=== PATIENT | male | born 1950 | race Caucasian/White ===

== ENCOUNTER 2017-01-13 10:25 | Inpatient (IN) | payer OTHER, MEDICARE ==
[~2017-01-13] VITALS: Ht 190.5 cm; Wt 149.7 kg
[~2017-01-13 10:25] MED LIST: ABILIFY15 M1 PO; AMBIEN10 MG PO; ASPIR 8181 MG PO; ATIVAN 0.5MG T0.5 MG PO; CEFTRIAXONE2 G2 IV; CEPHALEXIN500 M1 PO; CLONIDINE0.1 MG PO; DOLOPHINE10 MG PO; FERROUS SULFAT325 M3 PO; LISINOPRIL-HCT1 EAC1 PO; METHADONE HCL10 M1 PO; MULTIPLE VITAM1 EAC2 PO; MYCOSTATIN POWD15 GM TOP; ZESTORETIC 25 M1 TAB PO
--- NOTE | 2017-01-13 10:34 | NUR ---
PT SENT IN FROM DR. DANIEL OFFICE FOR ADMITSSION FOR CEULLULITIS OF HIS RIGHT LOWER EXT. PER RIGHT LEG DSG WAS CHANGED IN HIS OFFICE TODAY AND IS FINE.
--- NOTE | 2017-01-13 11:27 | NUR ---
APPRECIATE TRIAGE NOTE. PT TO ROOM 20 VIA WHEELCHAIR. PA ALICE TO BEDSIDE FOR EVAL.
--- NOTE | 2017-01-13 11:33 | ED SKIN/ALLERGY COMPLAINT ---
History of Present Illness General Chief Complaint: Lower Extremity Problems Stated Complaint: CELLULITIS? IN RIGHT LEG Source: patient Exam Limitations: no limitations Allergies Coded Allergies: Sulfa (Sulfonamide Antibiotics) (RASH 03/01/16) sulfamethoxazole (From ) (RASH 03/01/16) trimethoprim (From ) (RASH 03/01/16) Triage Note: PT SENT IN FROM DR. DANIEL OFFICE FOR ADMITSSION FOR CEULLULITIS OF HIS RIGHT LOWER EXT. PER RIGHT LEG DSG WAS CHANGED IN HIS OFFICE TODAY AND IS FINE. Triage Nurses Notes Reviewed? yes HPI: This patient is a 66-year-old male with a past medical history including hypertension and chronic venous insufficiency who presented to the emergency department for evaluation of possible cellulitis to his right lower extremity. The patient reported that he first noticed the symptoms on Friday. He was feeling very chilled and noticed redness to his right lower extremity. He reported that the redness has been extending up his leg. He reported mild pain to the area, but was unable to quantify or qualify the pain. The patient denied any fevers. He denied any chest pain, difficulty breathing, or abdominal pain. (ALICE VAIL,RINA) Vital Signs & Intake/Output Vital Signs & Intake/Output Vital Signs Date Time Temp Pulse Resp B/P B/P Pulse O2 O2 Flow FiO2 Mean Ox Delivery Rate 01/15 2207 98.5 67 22 120/70 98 01/15 1401 97.9 68 18 118/60 96 01/15 0656 97.7 60 18 126/66 99 Room Air ED Intake and Output 01/15 0000 01/14 1200 Intake Total 1220 120 Output Total 400 Balance 1220 -280 Intake, IV 600 Intake, Oral 620 120 Number 0 Bowel Movements Output, Urine 400 Reconcile Medications Alprazolam (Xanax) 0.5 MG TABLET 1 TAB PO 4 TIMES/DAY ANXIETY (Reported) Clindamycin HCl 300 MG CAPSULE 1 CAP PO 4 TIMES/DAY cellulits Ferrous Sulfate 325 MG (65 MG IRON) TABLET 1 TAB PO TID SUPPLEMENT (Reported) Lisinopril/Hydrochlorothiazide (Lisinopril-Hctz 20-25 MG Tab) 1 EACH TABLET 1 TAB PO DAILY HTN (Reported) Methadone Hydrochloride (Methadone HCl) 10 MG TABLET 3 TAB PO QAM [facility] (Reported) Methadone Hydrochloride (Methadone HCl) 10 MG TABLET 2 TAB PO QPM [facility] (Reported) Multivitamin (Multiple Vitamins) 1 EACH TABLET 1 TAB PO DAILY VITAMIN SUPPORT (Reported) Nystatin 1 BILLION UNIT POWDER.EA. 1 RONEL TOP TID FUNGAL RASH (Reported) Zolpidem Tartrate 10 MG TABLET 1 TAB PO QPM SLEEP HELP (Reported) (MACIEJ BURRELL,YUDELKA) Past History Travel History Traveled to [place] past 21 day No Medical History Any Pertinent Medical History? 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 No (RINA JENKINS PA-C) Review of Systems Review of Systems Constitutional: Reports: see HPI. EENTM: Reports: no symptoms. Respiratory: Reports: no symptoms. Cardiovascular: Reports: no symptoms. GI: Reports: no symptoms. Genitourinary: Reports: no symptoms. Musculoskeletal: Reports: no symptoms. Skin: Reports: see HPI. Neurological/Psychological: Reports: no symptoms. All Other Systems: Reviewed and Negative (RINA JENKINS PA-C) Physical Exam Physical Exam General Appearance: well developed/nourished, no apparent distress, alert, awake Comments: Well-developed well-nourished person in no acute distress HEENT: Normal EENT exam, head normocephalic, moist mucous membranes Neck: Supple, no lymphadenopathy Back: Antalgic gait Cardiovascular: Regular rate and rhythm with no murmurs, rubs, or gallops Respiratory: No respiratory distress. Breath sounds clear to auscultation bilaterally Right lower extremity: Stasis dermatitis. Erythema circumferentially to the lower extremity extending up to the thigh towards the hip. Mild tenderness to palpation. Mild amount of nonpitting edema to the lower extremity. Full range of motion of the hip, knee, and ankle. Dorsalis pedis and posterior tibialis pulses 2+ and strong Neuro: Alert oriented x3, cranial nerves II through XII grossly intact. Skin: No appreciable rash on exposed skin, skin is warm and dry. Psych: Mood and affect is normal (ALICE VAIL,RINA) Progress Differential Diagnosis: abscess/cellulitis, allergic reaction, contact dermatitis, drug reaction, erythema multiforme, meningitis/sepsis, urticaria (RINA JENKINS PA-C) Plan of Care: Current Medications Sig/Aminata Start time Last Medication Dose Stop Time Status Admin Alprazolam 0.5 MG FOUR TIMES A DAY PRN 01/15 0000 AC 01/15 (Xanax) 01/22 0959 2225 Clindamycin 600 MG IQ8 01/14 1600 AC 01/15 (Cleocin) 1620 Dextrose/Water 50 ML (D5W) Methadone HCl 30 MG QAM 01/14 1000 AC 01/15 (Dolophine) 0935 Heparin Sodium 5,000 UNIT Q8 01/13 2200 AC 01/15 (Porcine) 2222 Methadone HCl 20 MG QPM 01/13 2200 AC 01/15 (Dolophine) 2222 Senna/Docusate Sodium 1 TAB AT BEDTIME 01/13 2200 AC 01/13 (Senokot S) 2155 Zolpidem Tartrate 10 MG QPM / 2200 AC 01/15 (Ambien) 2223 Ferrous Sulfate 325 MG TID / 1600 AC 01/15 (Feosol) 2222 Acetaminophen 650 MG Q6P PRN / 1500 AC (Tylenol) Acetaminophen/ 1 TAB Q6P PRN / 1500 AC 05/ Hydrocodone Bitart 2045 (Vicodin) Oxycodone/ 2 TAB Q6P PRN /08 1500 AC / Acetaminophen 1405 (Percocet) Laboratory Tests 01/15/17 0550: Anion Gap 6, Estimated GFR > 60, BUN/Creatinine Ratio 36.4 H, Magnesium 1.8, CBC w Diff NO MAN DIFF REQ, RBC 3.10 L, MCV 83.1, MCH 27.2, RDW 16.0 H, MPV 9.7, Gran % 75.2, Lymphocytes % 15.9 L, Monocytes % 5.5, Eosinophils % 3.1, Basophils % 0.3, Absolute Granulocytes 3.7, Absolute Lymphocytes 0.8 L, Absolute Monocytes 0.3, Absolute Eosinophils 0.2, Absolute Basophils 0, PUBS MCHC 32.8 L Departure Departure Disposition: STILL A PATIENT Condition: Stable Clinical Impression Primary Impression: Cellulitis Qualifiers: Site of cellulitis: extremity Site of cellulitis of extremity: lower extremity Laterality: right Qualified Code: L03.115 - Cellulitis of right lower limb Secondary Impressions: ALYSSA (acute kidney injury), Lactic acidosis Referrals: MADELINE GUERRIER MD (PCP/Family) Departure Forms: Customer Survey General Discharge Information Admission Note Spoke With: MADELINE GUERRIER MD Documentation of Exam: Documentation of any treatments & extenuating circumstances including Concerns Regarding Discharge (functional status, medication knowledge or non-compliance, living conditions, etc.) that warrant an admission rather than observation: [ This patient is a 66 year old male who presented for evaluation of cellulitis to right lower extremity. Lacic acidosis at 2.2. Acute kidney injury. Cellulitis involving the right lower extremity. Patient should be admitted for IV antibiotics, trend labs, follow-up blood cultures, IV fluids, infectious disease consult, wound care, and close monitoring. Premature discharge could prove medically harmful.] (ALICE VAIL,RINA) Departure Prescriptions: Current Visit Scripts Clindamycin HCl 1 CAP PO 4 TIMES/DAY #27 CAP PA/DONOR SERVICES COORDINATOR Co-Sign Statement Statement: ED Attending supervision documentation- [X] I saw and evaluated the patient. I have also reviewed all the pertinent lab results and diagnostic results. I agree with the findings and the plan of care as documented in the PA's/DONOR SERVICES COORDINATOR's documentation. [X] I have reviewed the ED Record and agree with the PA's/DONOR SERVICES COORDINATOR's documentation. [] Additions or exceptions (if any) to the PAs/DONOR SERVICES COORDINATOR's note and plan are summarized below: [] (MACIEJ BURRELL,YUDELKA)
[2017-01-13 12:11] LABS: ABSOLUTE BASOPHIL COUNT 0 /CUMM (0.0-0.2); ABSOLUTE EOSINOPHIL COUNT 0 /CUMM (0.0-0.7); ABSOLUTE GRANULOCYTE CT 6.6 /CUMM (1.4-6.5); ABSOLUTE LYMPH COUNT 0.7 /CUMM (1.2-3.4); ABSOLUTE MONOCYTE COUNT 0.5 /CUMM (0.10-0.60); BASOPHIL % 0 % (0.0-2.0); EOSINOPHIL % 0.5 % (0-5); HEMATOCRIT 30.6 % (42-52); MEAN CORPUSCULAR HGB 27.3 PG (27.0-31.0); MEAN CORPUSCULAR HGB CONC 33.2 G/DL (33.0-37.0); MEAN CORPUSCULAR VOLUME 82.2 FL (80.0-94.0); MEAN PLATELET VOLUME 9.3 FL (7.4-10.4); PLATELET COUNT 183 /CUMM (130-400); RBC DISTRIBUTION WIDTH 16.3 % (11.5-14.5); RED BLOOD CELL CT 3.72 /CUMM (4.70-6.10); WHITE BLOOD CELL COUNT 7.8 /CUMM (4.8-10.8)
--- NOTE | 2017-01-13 12:11 | NUR ---
LABS OBTAINED VIA BUTTERFLY FIRST SET OF CULTURES, LAV, SST, AND RIDER. PT REFUSING NURSING STAFF TO ATTEMPT FOR IV. PT STATES "I ALWAYS GET A PICC LINE WHEN I AM ADMITTED, CALL ROBYN." ROBYN PAGED AT [phone] AT THIS TIME.
[2017-01-13] MEDS ORDERED: XANAX0.5 M1 PO (12:21)
[2017-01-13] MEDS ORDERED: NYSTATIN1 EAC8 TOP (12:26)
[2017-01-13] MEDS ORDERED: ZOLPIDEM TARTRA10 M1 PO (12:27)
[2017-01-13 12:33] LABS: GRANULOCYTE % 84.7 % (42.2-75.2)
--- NOTE | 2017-01-13 12:48 | NUR ---
CRITICAL TEST RESULTS [id number] MAGGIE PERDOMO,ROCK Jolley 66 M TESTS AND RESULTS: LACTIC 2.2 Results received and read back by: DENIS FARR Results received date and time: 01/13/17 1247
--- NOTE | 2017-01-13 13:35 | NUR ---
IV ATTEMPT X1 TO [facility] WITH NO SUCCESS. INFORMED WAITING PERFORMED AT THIS TIME, PT UPDATED ON POC. PA SRAGUE AWARE OF DIFFICULT ACCESS AND PT REFUSING MULTIPLE IV ATTEMPTS.
--- NOTE | 2017-01-13 14:30 | NUR ---
REPEAT LABS ATTEMPTED X1 BY THIS RN AND X1 BY [facility] WITH NO SUCCESS AT THIS TIME. PT REFUSING FURTHER BLOOD DRAWS AT THIS TIME, BENJAMIN JENKINS UPDATED.
--- NOTE | 2017-01-13 14:56 | History & Physical ---
ADAL NASSAR MD 01/13/17 7046: General Information and HPI MD Statement: I have seen and personally examined MAGGIE JRROCK Shola and documented this H&P. The patient is a 66 year old M who presented with a patient stated chief complaint of [REDDNESS AND SWELLING OF THE RIGHT LEG AND THIGH]. 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 The patient said the redness started on Friday night . He noticed that the redness of the leg worsened and he also had mild shakes and chills. He went to his routine wound care doctor today and who then referred him to the emergency department further evaluation and possible cellulitis of the right leg. Denies any recent trauma, recent travels or any visit to the [facility].rates Pain 8/10 and dull in nature. He resides in a senior nursing facility, but has his own apartment. He is fairly mobile and is independent wHILE ambulation. To be noted the patient also has a history of chronic hepatitis C as per him but no records were found for any treatment done in the past. Allergies/Medications Allergies: Coded Allergies: Sulfa (Sulfonamide Antibiotics) (RASH 03/01/16) sulfamethoxazole (From MAYRA) (RASH 03/01/16) trimethoprim (From MAYRA) (RASH 03/01/16) Home Med list Alprazolam (Xanax) 0.5 MG TABLET 1 TAB PO 4 TIMES/DAY ANXIETY (Reported) Ferrous Sulfate 325 MG (65 MG IRON) TABLET 1 TAB PO TID SUPPLEMENT (Reported) Lisinopril/Hydrochlorothiazide (Lisinopril-Hctz 20-25 MG Tab) 1 EACH TABLET 1 TAB PO DAILY HTN (Reported) Methadone Hydrochloride (Methadone HCl) 10 MG TABLET 3 TAB PO QAM [facility] (Reported) Methadone Hydrochloride (Methadone HCl) 10 MG TABLET 2 TAB PO QPM [facility] (Reported) Multivitamin (Multiple Vitamins) 1 EACH TABLET 1 TAB PO DAILY VITAMIN SUPPORT (Reported) Nystatin 1 BILLION UNIT POWDER.EA. 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 , stays alone Services at Home: None Primary Language: Kenyan Smoking Status: Never Smoked ETOH Use: occasional use Illicit Drug Use: denies illicit drug use Functional Ability ADLs Independent: dressing, eating, toileting, bathing. Ambulation: independent IADLs Independent: shopping, housework, finances, food prep, telephone, transportation , medication admin. Review of Systems Review of Systems Constitutional: Reports: see HPI. EENTM: Reports: see HPI. Cardiovascular: Reports: see HPI. Musculoskeletal: Denies: joint pain, joint swelling, muscle pain. Skin: Reports: dryness, erythema, rash. Exam & Diagnostic Data Last 24 Hrs of Vital Signs/I&O Vital Signs Date Time Temp Pulse Resp B/P B/P Pulse O2 O2 Flow FiO2 Mean Ox Delivery Rate 01/13 1032 98.2 97 16 101/68 Intake & Output 01/13 1600 / 0800 01/13 0000 Intake Total Output Total Balance Patient 325 lb Weight Weight Reported by Patient Measurement Method Physical Exam General Appearance Alert, Oriented X3, Cooperative Skin No Rashes, BILATERAL LOWER EXTREMITY REDNESS AND SWELLING, MORE ON THE RIGHT SIDE Skin Temp/Moisture Exam: Warm/Dry HEENT Atraumatic, PERRLA Neck Supple, No JVD Lymphatic Cervical nl Cardiovascular Normal S1, Normal S2 Lungs BILATERAL DECREASED AIR ENTRY BUT NO WHEEZING Extremities BILATERAL 2+ LEG EDEMA ON THE LEFT SIDE, bILATERAL 3+ LEG EDEMA ON THE RIGHT SIDE. rIGHT-SIDED REDNESS AND SWELLING EXTENDED UP TO THE MID THIGH (. 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 Vitals at the time of admission shows Blood pressure 101/68, respiration rate of 16, pulse rate of 97, temperature 98.2 Labs at the time of admission WBC is 7.8, hemoglobin of 10.1, hematocrit of 30.6, platelet count of 183, sodium of 137, potassium of 4.3, creatinine 1.5, BUNs of 53, lactic acid of 2.2, slightly elevated AST 87, Assessment 1. Nonpurulent Cellulitis of the right leg extending up to the midthigh 2. History of hypertension 3.Acute kidney injury secondary to hypotension-Pre renal - and poor intake 4. 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 The patient is now being scheduled for a PICC line placement with double-lumen with the IR suite. I personally spoke to the IR physician would place the PICC line in the afternoon today. IV cefazolin for cellulitis Wound care consult in the morning Leg elevation No imaging needed at this point The patient is not responding and has persistent leukocytosis or fever on IV antibiotics consider imaging with MRI of the leg rule out osteomyelitis DVT prophylaxis with subcutaneous heparin For patient's acute kidney injury IV hydration normal saline at 100 mL per hour after giving another bolus of 1 L. To be noted that the patient received no IV fluidsin the e emergency department. Repeat lactic acid in the morning Repeat CBC and basic electrolyte panel in the morning Hold HCTZ/Lisiopril due to ALYSSA. Resume in AM if Creatinie is better. Pain pathway DVT prophylaxis at all times patient is full code As Ranked By This Provider Problem List: 1. Cellulitis, leg 2. Wound infection Core Measures/Miscellaneous Acute Coronary Syndrome ACS Diagnosis: No Cerebrovascular Accident CVA/TIA Diagnosis: No Congestive Heart Failure CHF Diagnosis: No Venous Thromboembolism VTE Risk Factors: Acute medical illness, Age > 40 No Mech VTE prophylaxis d/t: VTE low risk, No contraindications No VTE Pharm Prophylaxis d/t: No contraindications VTE Diagnosis: No VTE Type: NONE VTE Confirmed by (Test): NONE Severe Sepsis Severe Sepsis Present: No Septic Shock Septic Shock Present: No Miscellaneous Documentation Attending Case Discussed With: MADELINE GUERRIER MD Primary Care Physician: MADELINE GUERRIER MD Patient sees these Specialists Dr. Acevedo for wound care Level of Patient Care: General Medicine MADELINE GUERRIER MD 01/14/17 0923: Attending Review Statement Attending Statement Attending MD Statement: examined this patient, discuss w/resident/PA/MACHINE INSPECTOR, agreed w/resident/PA/MACHINE INSPECTOR, reviewed EMR data (avail) Attending Statement Attending Statement: examined this patient, discuss w/resident/PA/MACHINE INSPECTOR, agreed w/resident/PA/MACHINE INSPECTOR, reviewed EMR data (avail)
--- NOTE | 2017-01-13 15:08 | NUR ---
PT PROVIDED LUNCH TRAY. INFORMED WAITING PERFORMED, OFFERS NO COMPLAINTS AT THIS TIME.
--- NOTE | 2017-01-13 15:19 | NUR ---
HOUSE STAFF TO BEDSIDE FOR EVAL. HOUSE STAFF UPDATED ON PT NEED FOR VENOUS ACCESS, PLAN IN PLACE FOR PT TO GO TO IR AT THIS TIME. PT UPDATED ON POC.
--- NOTE | 2017-01-13 16:53 | NUR ---
PT AMBULATORY TO IR FOR PICC LINE PLACEMENT.
--- NOTE | 2017-01-13 17:09 | NUR ---
PT IS GOING TO -
--- NOTE | 2017-01-13 17:20 | NUR ---
REPORT GIVEN TO TOBY PERKINS ON 2NB. PT CONTINUES AT IR AT THIS TIME.
--- NOTE | 2017-01-13 17:45 | ULTRASOUND REPORT ---
PICC LEFT PROCEDURE: Right sided PICC line placement. CLINICAL INDICATION: Infection requiring IV access. Poor IV access INTERVENTIONAL RADIOLOGIST: Kodak Castellano M.D. ACCESS: Right basilic vein. GUIDANCE: Ultrasound and Fluoroscopy COMPLICATIONS: none Fluoroscopy time: 1.6 minutes. CONTRAST: none DESCRIPTION: Informed consent was obtained from the patient prior to the procedure. During this process, the procedure and potential alternatives were explained along with the intended outcome and benefits. The risks of the procedure including the possibility of an unsuccessful procedure, as well as the risk of not doing the procedure were discussed. The patient was given the opportunity to ask questions regarding the procedure and appeared competent he decisions. A signed consent form was document this discussion was placed in the medical record. A time out procedure was performed. The right arm was prepped and draped. Initial ultrasound images demonstrated a patent and compressible right basilic vein. Under direct ultrasound guidance, the right basilic vein was punctured using a micropuncture system. Under fluoroscopic guidance, a 0.018 guidewire was advanced into the right atrium. A hard copy image of the US was recorded in our PACS. The catheter length was measured using the measuring wire. A 5 [place] peel-away sheath was then placed. Subsequently, a 50 cm 5 [place] double-lumen Bard Power PICC was placed through the sheath and positioned with its tip at the right atrial/SVC junction. The PICC line was secured to the skin using a fixation device. Each lumen of the PICC was flushed with 2ccs of Hep-Lock and a sterile dressing was applied. IMPRESSION: Successful placement of 5 [place] right sided double-lumen power PICC. This can be used for contrast CT power injections. PICC is ready for immediate use.
--- NOTE | 2017-01-13 18:10 | NUR ---
PT RETURN WITH DOUBLE LUMEN PICC LINE TO [facility]. LINE CLEARED BY IR FOR USE. REPEAT BLOOD WORK OBTAINED AND SENT. NS BOLUS HUNG PER EMAR, MEDICATED WITH ANTIBIOTICS AND FEOSOL. PT OFFERS NO COMPLAINTS AT THIS TIME. DISTRIBUTION CALLED FOR PT TRANSPORT.
[2017-01-13 18:45] VITALS: BP 122/64
--- NOTE | 2017-01-13 19:27 | NUR ---
1830 PATIENT ARRIVED TO THE FLOOR A+O X3, ON RA, VSS, NO S/O DISTRESS, ORIENTED TO THE ROOM, BED LOW, LOCKED, CALL LIGHT IN REACH.
[2017-01-13 23:09] VITALS: BP 100/50
[2017-01-14 01:00] VITALS: BP 107/57
--- NOTE | 2017-01-14 04:11 | NUR ---
LATE ENTRY PT PULLED OUT PICC LINE ACCIDENTLY. MEASURED 50 CM. OCCULSIVE DRESSING APPLIED. NO DISTRESS NOTED. MD ANDERSONDY NOTIFIED. ICU NURSE ATTEMPTED TO OBTAIN ACCESS. ACCESS UNABLE TO BE OBTAINED. NNO AT THIS TIME. WILL CONTINUE TO MONITOR.
[2017-01-14 04:36] VITALS: BP 110/60
[2017-01-14 06:42] VITALS: BP 109/60
--- NOTE | 2017-01-14 06:52 | PN- Housestaff ---
Subjective Follow-up For: Lower extremity cellulitis Subjective: I saw and examined the patient todya morning He is doing well, still reports pain in his legs. Pulled his PICC out accidentally yesterday. we will try to place it again today. Didnt receive any antibiotics as PICC line access lost. Today he got another PICC line placed. Review of Systems Constitutional: Reports: see HPI. Comments: ROS negative except the above. Objective Last 24 Hrs of Vital Signs/I&O Vital Signs Date Time Temp Pulse Resp B/P B/P Pulse O2 O2 Flow FiO2 Mean Ox Delivery Rate 01/14 0642 98.3 76 20 109/60 97 Room Air 01/14 0436 110/60 01/14 0100 107/57 01/13 2309 98.5 84 20 100/50 95 Room Air 01/13 1845 99.2 84 18 122/64 98 Room Air Room Air 01/13 1811 99.1 95 20 120/58 96 Room Air / 1614 98.7 94 18 105/66 95 Room Air Room Air 01/13 1312 98.6 89 18 112/67 96 Room Air Room Air 01/13 1032 98.2 97 16 101/68 Intake & Output 01/14 0800 / 0000 08 1600 Intake Total 120 1220 Output Total 400 Balance -280 1220 Intake, IV 1100 Intake, Oral 120 120 Output, Urine 400 Patient 149.685 kg 147.418 kg Weight Weight Reported by Patient Reported by Patient Measurement Method Physical Exam General Appearance: Alert, Oriented X3, Cooperative, No Acute Distress Skin: significant cellulitis spreading all over the right leg upto the thigh. HEENT: Atraumatic, PERRLA, EOMI Neck: Supple Cardiovascular: Normal S1, Normal S2 Lungs: Normal Air Movement, decreased breath sounds bilaterally Abdomen: Normal Bowel Sounds, Soft, No Tenderness Neurological: Normal Speech, Sensation Intact, Cranial Nerves 3-12 NL Extremities: No Clubbing, No Cyanosis, significant edema on both legs right >> left. Erthematous all over the right leg involving thigh. Vascular: Pulses Symmetrical Current Medications: Current Medications Sig/Aminata Start time Last Medication Dose Route Stop Time Status Admin Acetaminophen 650 MG Q6P PRN 01/13 1500 AC PO Acetaminophen/ 1 TAB Q6P PRN 01/13 1500 AC 01/14 Hydrocodone Bitart PO 2037 Alprazolam 0.5 MG ONCE ONE 01/14 0900 DC 01/14 PO 01/14 901 09 Alprazolam 0.5 MG ONCE ONE 01/13 2130 DC 01/13 PO 01/13 2131 215 Cefazolin Sodium 1,000 MG IQ8 01/13 1600 DC 05 IV 2352 Clindamycin 600 MG IQ8 01/14 1600 AC 01/14 Dextrose/Water 50 ML IV 1614 Ferrous Sulfate 325 MG TID 01/13 1600 AC 01/14 PO 1614 Heparin Sodium 0 .STK-MED ONE 01/14 1505 DC (Porcine) IV Heparin Sodium 0 .STK-MED ONE 01/14 1355 DC (Porcine) IV Heparin Sodium 5,000 UNIT Q8 01/13 2200 AC 01/14 (Porcine) SC 1303 Lidocaine 0 .STK-MED ONE 01/14 1355 DC .ROUTE Methadone HCl 30 MG QAM 01/14 1000 AC 01/14 PO 0902 Methadone HCl 20 MG QPM 01/13 2200 AC 01/13 PO 2154 Oxycodone/ 2 TAB Q6P PRN 01/13 1500 AC Acetaminophen PO Senna/Docusate Sodium 1 TAB AT BEDTIME 01/13 2200 AC 01/13 PO 2155 Sodium Chloride 1,000 ML Q10H 01/13 1515 AC 01/14 IV 1614 Zolpidem Tartrate 10 MG QPM 01/13 2200 AC 01/13 PO 2154 Last 24 Hrs of Lab/Yung Results Last 24 Hrs of Labs/Mics: Laboratory Tests 01/14/17 0640: Anion Gap 9, Estimated GFR 43 L, BUN/Creatinine Ratio 36.9 H, Total Bilirubin 0.6, Direct Bilirubin 0.5 H, AST 97 H, ALT 71, Alkaline Phosphatase 97, Total Protein 5.8 L, Albumin 2.7 L, CBC w Diff NO MAN DIFF REQ, RBC 3.13 L, MCV 82.7, MCH 27.5, RDW 16.2 H, MPV 10.1, Gran % 80.8 H, Lymphocytes % 12.1 L, Monocytes % 4.9, Eosinophils % 2.0, Basophils % 0.2, Absolute Granulocytes 4.6, Absolute Lymphocytes 0.7 L, Absolute Monocytes 0.3, Absolute Eosinophils 0.1, Absolute Basophils 0, PUBS MCHC 33.3 Lines/Diet/Fluids Central Line Type/Location: PICC Assessment/Plan Assessment: Patient is a 66 YO M with PMH significant for HTN, chronic pain syndrome (on methadone), chronic venous insufficiency, 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 He was referred from the wound care center. Intial labs significant for Cr 1.5 (baseline 1.2), lactic acid 2.2 dropped down to 1.2 Underwent PICC placement yesterday which was unfortunately pulled without his knowledge while asleep. Plan Admitted to general medicine floor Extensive right leg cellulits * History of MRSA 2006 with chronic venous insufficiency * Intially started on cefazoline - however today started on clindamycin 600mg IV Q8 * Repeat PICC line placement is successful, started on fluids (1L) and Clindamycin. * Leg elevation * wound consult ALYSSA * Cr of 1.5 at admission (baseline 1.2) * As there is no peripheral line, he was not hydrated and it further increased to 1.6 * After PICC placement - 1L NS given * Repeat BEP Drop in H&H * sudden drop in H&H from /30 to 8.6/25.9 in a normocytic anemia patient. * we will repeat CBC tomorrow and guiac all the stools. Chronic stable conditions Anxiety - Alprazolam 0.5mg QID chronic pain syndrome - methadone 30mg QAM and 20mg QPM daily HTN: lisinopril/HCTZ daily - on hold in the setting of ALYSSA - BP is on lower side. Amemia: Ferrous sulphate 325mg TID Insomnia: Zolpidem 10mg at bedtime Supplements: multivitamin DVT prophylaxis * SC heparin 5000units TID Code Status * Full code Problem List: 1. Cellulitis, leg 2. ALYSSA (acute kidney injury) 3. Chronic pain syndrome 4. Anemia 5. Sepsis associated hypotension Pain Ratin Pain Location: right leg Pain Goal: Pain 4 or less Pain Plan: percocet, tylneol methadone Tomorrow's Labs & Rationales: cbc to monitor H&H bep to monitor renal function and lytes
--- NOTE | 2017-01-14 07:45 | NUR ---
DR HOOKER MADE AWARE PATIENT HAS NO IV ACCESS AT THIS TIME; ORDER FOR PICC PLACEMENT ENTERED BY DR HOOKER;
[2017-01-14 08:12] LABS: ABSOLUTE BASOPHIL COUNT 0 /CUMM (0.0-0.2); ABSOLUTE EOSINOPHIL COUNT 0.1 /CUMM (0.0-0.7); ABSOLUTE GRANULOCYTE CT 4.6 /CUMM (1.4-6.5); ABSOLUTE LYMPH COUNT 0.7 /CUMM (1.2-3.4); ABSOLUTE MONOCYTE COUNT 0.3 /CUMM (0.10-0.60); BASOPHIL % 0.2 % (0.0-2.0); GRANULOCYTE % 80.8 % (42.2-75.2); HEMATOCRIT 25.9 % (42-52); MEAN CORPUSCULAR HGB 27.5 PG (27.0-31.0); MEAN CORPUSCULAR HGB CONC 33.3 G/DL (33.0-37.0); MEAN CORPUSCULAR VOLUME 82.7 FL (80.0-94.0); MEAN PLATELET VOLUME 10.1 FL (7.4-10.4); PLATELET COUNT 144 /CUMM (130-400); RBC DISTRIBUTION WIDTH 16.2 % (11.5-14.5); RED BLOOD CELL CT 3.13 /CUMM (4.70-6.10)
--- NOTE | 2017-01-14 08:53 | PN- Wound Care ---
Subjective Subjective: Patient is 66-year-old gentleman who is treated for bilateral recurrent lower extremity venous stasis ulceration. He was seen in the wound center yesterday and found to have marked erythema of his right leg where is his primary wounds are on his left leg. His original right lower extremity ulcer is healed there was a small ulcer present superior to this. She had been feeling poorly since Friday with progressive erythema of his right leg. He was referred to the emergency room for admission for cellulitis of the right leg. Objective Vital Signs and I&Os Vital Signs Result Date Time Pulse Ox 97 01/14 642 B/P 109/60 01/14 642 O2 Delivery Room Air 01/14 642 Temp 98.3 01/14 642 Pulse 76 01/14 642 Resp 20 01/14 642 O2 Flow Rate Room Air 01/13 1845 Intake & Output 01/14 0000 01/13 1600 01/13 0800 Intake Total 1220 Output Total Balance 1220 Intake, IV 1100 Intake, Oral 120 Patient 330 lb 325 lb Weight Weight Reported by Patient Reported by Patient Measurement Method Physical Exam: Left leg has multilayer compression dressing in is no evidence of wound infection of the left leg the right leg has a small approximately 1 x 1 cm clean red fill based ulcer there is marked erythema from the knee to the upper thigh Impression/Plan Impression/Plan Impression/Plan: 66-year-old gentleman with history of diabetes prior left toe osteomyelitis chronic recurrent venous stasis ulcerations admitted with cellulitis of the right leg. Recommend aggressive elevation antibiotics Xeroform daily. Multilayer compression dressing on the left leg will be changed
--- NOTE | 2017-01-14 09:17 | Admission Certification ---
Admission Certification Certification Statement - As attending physician, I certify that at the time of - admission, based on clinical presentation, severity of - symptoms, need for further diagnostic testing and - therapeutic interventions, and risk of adverse outcomes - without in-hospital treatment, in my clinical assessment, - this patient requires an acute hospital stay for a minimum - of two nights or longer. I have also considered psychsocial - factors such as support system, advanced age, financial - issues, cognitive issues, and failed out-patient treatments, - past re-admission history, safety of patient, and lack of - compliance as applicable. Specific rationale supporting this admission is: Right leg cellulitis
--- NOTE | 2017-01-14 09:24 | PN- Att Addend ---
Attending Addendum Attending Brief Note Patient reports pain and redness right lower extremity General Appearance: Alert, No Acute Distress Skin: Grossly normal HEENT: PEERLA Neck: Supple, No JVD Cardiovascular: Regular Rate, Normal S1, Normal S2, No Murmurs Lungs: Clear to Auscultation, Normal Air Movement Abdomen: Normal Bowel Sounds, Soft, No Tenderness Neurological: Normal Speech, Strength at 5/5 X4 Ext, Cranial Nerves 3-12 NL, Reflexes 2+ Extremities: Right lower extremity cellulitis extending from upper thigh up to upper leg Assessment 66-year-old with history of hypertension, chronic pain syndrome, chronic venous insufficiency, mood disorder, left foot osteomyelitis with MRSA wound infection presenting with chills, fever and redness with pain right lower extremity. Given history of MRSA in the past with cover him for the same. Also noted acute kidney injury likely secondary to dehydration. Plan Discontinue cefazolin Start clindamycin Begin gentle hydration Repeat renal function in a.m follow cultures Elevate leg Continue other home medications including methadone DVT prophylaxis Current Medications Sig/Aminata Start time Last Medication Dose Route Stop Time Status Admin Acetaminophen 650 MG Q6P PRN 01/13 1500 AC PO Acetaminophen/ 1 TAB Q6P PRN 01/13 1500 AC 01/14 Hydrocodone Bitart PO 0537 Alprazolam 0.5 MG ONCE ONE 01/14 0900 DC 01/14 PO 01/14 0901 0902 Alprazolam 0.5 MG ONCE ONE 01/13 2130 DC / PO 01/13 2131 2154 Alprazolam 0 .STK-MED ONE 01/13 1414 DC PO Alprazolam 0.5 MG ONCE ONE 01/13 1400 DC 01/13 PO 01/13 1401 1412 Cefazolin Sodium 0 .STK-MED ONE 01/13 1804 DC .ROUTE Cefazolin Sodium 1,000 MG IQ8 01/13 1600 AC 01/13 IV 2352 Enoxaparin Sodium 40 MG DAILY 01/14 1000 CAN SC Ferrous Sulfate 325 MG TID 01/13 1600 AC 01/14 PO 0902 Heparin Sodium 5,000 UNIT Q8 01/13 2200 AC 01/14 (Porcine) SC 0538 Heparin Sodium 0 .STK-MED ONE 01/13 1653 DC (Porcine) IV Lidocaine 0 .STK-MED ONE 01/13 1654 DC .ROUTE Methadone HCl 30 MG QAM 01/14 1000 AC 01/14 PO 0902 Methadone HCl 20 MG QPM 01/13 2200 AC 01/13 PO 2154 Oxycodone/ 2 TAB Q6P PRN 01/13 1500 AC Acetaminophen PO Senna/Docusate Sodium 1 TAB AT BEDTIME 01/13 2200 AC 01/13 PO 2155 Sodium Chloride 1,000 ML Q10H 01/13 1515 AC IV Sodium Chloride 1,000 ML BOLUS ONE 01/13 1515 DC 01/13 IV 01/13 1714 2012 Sodium Chloride 1,000 ML BOLUS ONE 01/13 1145 DC 01/13 IV 01/13 1244 1809 Zolpidem Tartrate 10 MG QPM 01/13 2200 AC 01/13 PO 2154 Laboratory Tests 01/14 01/13 01/13 0640 1753 1158 Chemistry Sodium (137 - 145 mmol/L) 135 L 137 Potassium (3.5 - 5.1 mmol/L) 4.3 4.3 Chloride (98 - 107 mmol/L) 104 99 Carbon Dioxide (22 - 30 mmol/L) 22 26 Anion Gap (5 - 16) 9 11 BUN (9 - 20 mg/dL) 59 H 53 H Creatinine (0.7 - 1.2 mg/dL) 1.6 H 1.5 H Estimated GFR (>60 ml/min) 43 L 47 L BUN/Creatinine Ratio (7 - 25 %) 36.9 H 35.3 H Glucose (65 - 99 mg/dL) 111 H Lactic Acid (0.7 - 2.1 mmol/L) 1.7 2.2 H Calcium (8.4 - 10.2 mg/dL) 9.0 Total Bilirubin (0.2 - 1.3 mg/dL) 0.6 0.5 Direct Bilirubin (< 0.4 mg/dL) 0.5 H AST (17 - 59 U/L) 97 H 87 H ALT (21 - 72 U/L) 71 59 Alkaline Phosphatase (< 127 U/L) 97 96 Total Protein (6.3 - 8.2 g/dL) 5.8 L 7.1 Albumin (3.5 - 5.0 g/dL) 2.7 L 3.5 Globulin (1.9 - 4.2 gm/dL) 3.6 Albumin/Globulin Ratio (1.1 - 2.2 %) 1.0 L Hematology CBC w Diff Pending NO MAN DIFF REQ WBC (4.8 - 10.8 /CUMM) Pending 7.8 RBC (4.70 - 6.10 /CUMM) Pending 3.72 L Hgb (14.0 - 18.0 G/DL) Pending 10.1 L Hct (42 - 52 %) Pending 30.6 L MCV (80.0 - 94.0 FL) Pending 82.2 MCH (27.0 - 31.0 PG) Pending 27.3 RDW (11.5 - 14.5 %) Pending 16.3 H Plt Count (130 - 400 /CUMM) Pending 183 MPV (7.4 - 10.4 FL) Pending 9.3 Gran % (42.2 - 75.2 %) Pending 84.7 H Lymphocytes % (20.5 - 51.1 %) Pending 8.7 L Monocytes % (1.7 - 9.3 %) Pending 6.1 Eosinophils % (0 - 5 %) Pending 0.5 Basophils % (0.0 - 2.0 %) Pending 0 L Absolute Granulocytes (1.4 - 6.5 /CUMM) Pending 6.6 H Absolute Lymphocytes (1.2 - 3.4 /CUMM) Pending 0.7 L Absolute Monocytes (0.10 - 0.60 /CUMM) Pending 0.5 Absolute Eosinophils (0.0 - 0.7 /CUMM) Pending 0 Absolute Basophils (0.0 - 0.2 /CUMM) Pending 0 PUBS MCHC (33.0 - 37.0 G/DL) Pending 33.2 Vital Signs Date Time Temp Pulse Resp B/P B/P Pulse O2 O2 Flow FiO2 Mean Ox Delivery Rate 01/14 0642 98.3 76 20 109/60 97 Room Air 01/14 0436 110/60 01/14 0100 107/57 05 2309 98.5 84 20 100/50 95 Room Air 01/13 1845 99.2 84 18 122/64 98 Room Air Room Air 01/13 1811 99.1 95 20 120/58 96 Room Air 05/08 1614 98.7 94 18 105/66 95 Room Air Room Air 01/13 1312 98.6 89 18 112/67 96 Room Air Room Air 05/08 1032 98.2 97 16 101/68
[2017-01-14 09:50] LABS: WHITE BLOOD CELL COUNT 10.2 /CUMM (4.8-10.8)
--- NOTE | 2017-01-14 13:38 | NUR ---
PATIENT OFF FLOOR TO IR VIA STRETCHER FOR PICC PLACEMENT; PATIENT A/OX3; RA; NO COMPLAINTS OF DISCOMFORT AT THIS TIME; DRESSINGS TO BLE INTACT; AWAITING RETURN OF PATIENT;
--- NOTE | 2017-01-14 17:56 | ULTRASOUND REPORT ---
PROCEDURE: PICC LINE PLACEMENT UNDER SONOGRAPHIC AND FLUOROSCOPIC GUIDANCE CLINICAL INFORMATION: 66-year-old with the extensive cellulitis of the right leg. Poor venous access. PICC line requested to facilitate antibiotic therapy. Previous PICC line inadvertently pulled out by the patient while sleeping. FREIGHT SERVICE INSPECTOR: Dr. Akin Paz. ACCESS: Right brachial vein. TECHNIQUE/FINDINGS: Informed consent was obtained from the patient prior to the procedure. During this process, the procedure and potential alternatives was explained, along with the intended outcome and benefits. The risks of the procedure, as well as the risk of not doing the procedure, were discussed. The patient was given the opportunity to ask questions regarding the procedure and appeared competent to make medical decisions. A signed consent form which documents this discussion was placed in the medical record. The patient was brought to the interventional radiology suite and a final timeout procedure was performed. A sonographic survey was performed for assessment of venous access. The right brachial vein was confirmed to be patent. A sonographic image was sent to PACS for documentation. The right arm was sterilely prepped and draped. Maximum sterile barrier technique was maintained throughout the procedure. Following administration of local anesthesia using 1% lidocaine, a puncture was performed of the right brachial vein above the elbow joint under direct sonographic visualization. A [place] mandrel wire was advanced into the needle to the superior vena cava. A 6 [place] peel-away sheath was then in inserted using standard Seldinger technique. A 5 [place] dual lumen Bard Power PICC was cut to 49 cm. The catheter was advanced under fluoroscopic guidance until its tip was at the SVC-right atrial junction. Both ports could be easily aspirated. The lumens of the PICC were flushed with heparinized saline. A Biopatch was placed around around the catheter at the entrance site. The catheter was secured with 3-0 proline suture. A sterile dressing was applied. The patient tolerated the procedure well. There was no evidence of complications. FLUOROSCOPY TIME: 0.3 minutes ESTIMATED RADIATION EXPOSURE: 4.8 Thomas-cm squared IMPRESSION: Successful placement of a 49 cm length dual-lumen power injectable PICC line via the right arm under a combination of sonographic and fluoroscopic guidance. No evidence of complications.
--- NOTE | 2017-01-14 18:06 | NUR ---
WOUND CARE: PT V+E BY DR BRIONES - PLEASE REFER TO RECOMMEDNATION
[2017-01-14 22:28] VITALS: BP 130/72
[2017-01-15 06:56] VITALS: BP 126/66
--- NOTE | 2017-01-15 07:25 | PN- Housestaff ---
Subjective Follow-up For: Right lower extremity cellulitis Subjective: I saw and examined the patient today morning He is doing much better - although still had significant erythema over his legs. No associated fevers, chills. Review of Systems Constitutional: Reports: see HPI. Comments: ROS negative except the above. Objective Last 24 Hrs of Vital Signs/I&O Vital Signs Date Time Temp Pulse Resp B/P B/P Pulse O2 O2 Flow FiO2 Mean Ox Delivery Rate 01/15 0656 97.7 60 18 126/66 99 Room Air 01/14 2228 98.8 77 20 130/72 95 Room Air Intake & Output 01/15 0800 01/15 0000 01/14 1600 Intake Total 1280 720 500 Output Total Balance 1280 720 500 Intake, IV 800 600 0 Intake, Oral 480 120 500 Number 0 Bowel Movements Physical Exam General Appearance: Alert, Oriented X3, Cooperative, No Acute Distress Skin: No Breakdown, significant erthema and edema all over the right lower extremity HEENT: Atraumatic, PERRLA, EOMI Neck: Supple Cardiovascular: Normal S1, Normal S2 Lungs: Clear to Auscultation, Normal Air Movement Abdomen: Normal Bowel Sounds, Soft, No Tenderness Neurological: Normal Speech, Strength at 5/5 X4 Ext, Normal Tone Extremities: No Clubbing, No Cyanosis, 3+ edema on right side, 2+ on left side Vascular: Pulses Symmetrical Current Medications: Current Medications Sig/Aminata Start time Last Medication Dose Route Stop Time Status Admin Acetaminophen 650 MG Q6P PRN 01/13 1500 AC PO Acetaminophen/ 1 TAB Q6P PRN 01/13 1500 AC 01/15 Hydrocodone Bitart PO 0934 Alprazolam 0.5 MG FOUR TIMES A DAY PRN 01/15 0000 AC 01/15 PO 01/22 0959 1405 Clindamycin 600 MG IQ8 01/14 1600 AC 01/15 Dextrose/Water 50 ML IV 1620 Ferrous Sulfate 325 MG TID 01/13 1600 AC 01/15 PO 1620 Heparin Sodium 5,000 UNIT Q8 01/13 2200 AC 01/15 (Porcine) SC 1404 Magnesium Oxide 400 MG ONE ONE 01/15 1615 DC 01/15 PO 01/15 1616 1822 Methadone HCl 30 MG QAM 01/14 1000 AC 01/15 PO 0935 Methadone HCl 20 MG QPM 01/13 2200 AC 01/14 PO 2221 Oxycodone/ 2 TAB Q6P PRN 01/13 1500 AC 01/15 Acetaminophen PO 1405 Patient Medication 1 ED .STK-MED ONE 01/15 1401 DC Teaching ED 01/15 1402 Senna/Docusate Sodium 1 TAB AT BEDTIME 01/13 2200 AC 01/13 PO 2155 Sodium Chloride 1,000 ML Q10H 01/13 1515 DC 01/15 IV 0626 Zolpidem Tartrate 10 MG QPM 01/13 2200 AC 01/14 PO 2222 Last 24 Hrs of Lab/Yung Results Last 24 Hrs of Labs/Mics: Laboratory Tests 01/15/17 0550: Anion Gap 6, Estimated GFR > 60, BUN/Creatinine Ratio 36.4 H, Magnesium 1.8, CBC w Diff NO MAN DIFF REQ, RBC 3.10 L, MCV 83.1, MCH 27.2, RDW 16.0 H, MPV 9.7, Gran % 75.2, Lymphocytes % 15.9 L, Monocytes % 5.5, Eosinophils % 3.1, Basophils % 0.3, Absolute Granulocytes 3.7, Absolute Lymphocytes 0.8 L, Absolute Monocytes 0.3, Absolute Eosinophils 0.2, Absolute Basophils 0, PUBS MCHC 32.8 L Assessment/Plan Assessment: Patient is a 66 YO M with PMH significant for HTN, chronic pain syndrome (on methadone), chronic venous insufficiency, 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 He was referred from the wound care center. Intial labs significant for Cr 1.5 (baseline 1.2), lactic acid 2.2 dropped down to 1.2 Underwent PICC placement yesterday which was unfortunately pulled without his knowledge while asleep. Plan Admitted to general medicine floor Extensive right leg cellulits * History of MRSA & chronic venous insufficiency * Continue clindamycin IV 600mg Q8 via PICC line. * Leg elevation * wound consult ALYSSA * Cr of 1.1 - back to basline --> resolved. Drop in H&H * sudden drop in H&H from 10/30 to 8.6/25.9 in a normocytic anemia patient. * we will repeat CBC tomorrow and guiac all the stools. Chronic stable conditions Anxiety - Alprazolam 0.5mg QID chronic pain syndrome - methadone 30mg QAM and 20mg QPM daily HTN: lisinopril/HCTZ daily - on hold in the setting of ALYSSA - BP is on lower side. Amemia: Ferrous sulphate 325mg TID Insomnia: Zolpidem 10mg at bedtime Supplements: multivitamin DVT prophylaxis * SC heparin 5000units TID Code Status * Full code Problem List: 1. Cellulitis, leg 2. Acute kidney failure Pain Ratin Pain Location: right lower extremity Pain Goal: Pain 4 or less Pain Plan: tylenol and vicodine Tomorrow's Labs & Rationales: none
[2017-01-15 08:03] LABS: ABSOLUTE BASOPHIL COUNT 0 /CUMM (0.0-0.2); ABSOLUTE GRANULOCYTE CT 3.7 /CUMM (1.4-6.5); ABSOLUTE LYMPH COUNT 0.8 /CUMM (1.2-3.4); ABSOLUTE MONOCYTE COUNT 0.3 /CUMM (0.10-0.60); EOSINOPHIL % 3.1 % (0-5)
[2017-01-15 08:26] LABS: ABSOLUTE EOSINOPHIL COUNT 0.2 /CUMM (0.0-0.7); BASOPHIL % 0.3 % (0.0-2.0); GRANULOCYTE % 75.2 % (42.2-75.2); HEMATOCRIT 25.8 % (42-52); MEAN CORPUSCULAR HGB 27.2 PG (27.0-31.0); MEAN CORPUSCULAR HGB CONC 32.8 G/DL (33.0-37.0); MEAN CORPUSCULAR VOLUME 83.1 FL (80.0-94.0); MEAN PLATELET VOLUME 9.7 FL (7.4-10.4); PLATELET COUNT 126 /CUMM (130-400)
--- NOTE | 2017-01-15 08:28 | PN- Wound Care ---
Subjective Subjective: Patient feels somewhat improved though continues to have dramatic erythema of the right right upper leg and thigh though he remains afebrile. Cultures remain negative Objective Vital Signs and I&Os Vital Signs Result Date Time Pulse Ox 99 01/16 656 B/P 126/66 01/16 656 O2 Delivery Room Air 01/16 656 Temp 97.7 01/16 656 Pulse 60 01/16 656 Resp 18 01/16 656 O2 Flow Rate Room Air 01/13 1845 Intake & Output 01/15 0000 01/14 1600 01/14 0800 Intake Total 720 500 120 Output Total 400 Balance 720 500 -280 Intake, IV 600 0 Intake, Oral 120 500 120 Number 0 Bowel Movements Output, Urine 400 Left lower extremity multilayer compression dressing will be changed today. Right-sided ulcers are healing though there continues to be edema and erythema of the leg. Would obtain a right lower extremity duplex ultrasound to rule out DVT. Continue antibiotics Impression/Plan Impression/Plan Impression/Plan: 66-year-old gentleman with history of diabetes prior left toe osteomyelitis chronic recurrent venous stasis ulcerations admitted with cellulitis of the right leg. Recommend aggressive elevation antibiotics Xeroform daily. Multilayer compression dressing on the left leg will be changed
[2017-01-15 08:38] LABS: WHITE BLOOD CELL COUNT 4.9 /CUMM (4.8-10.8)
--- NOTE | 2017-01-15 09:32 | PN- Att Addend ---
Attending Addendum Attending Brief Note Patient reports improved pain and redness right lower extremity General Appearance: Alert, No Acute Distress Skin: Grossly normal HEENT: PEERLA Neck: Supple, No JVD Cardiovascular: Regular Rate, Normal S1, Normal S2, No Murmurs Lungs: Clear to Auscultation, Normal Air Movement Abdomen: Normal Bowel Sounds, Soft, No Tenderness Neurological: Normal Speech, Strength at 5/5 X4 Ext, Cranial Nerves 3-12 NL, Reflexes 2+ Extremities: Right lower extremity cellulitis extending from upper thigh up to upper leg Assessment 66-year-old with history of hypertension, chronic pain syndrome, chronic venous insufficiency, mood disorder, left foot osteomyelitis with MRSA wound infection presenting with chills, fever and redness with pain right lower extremity. Given history of MRSA in the past with cover him for the same. Also noted acute kidney injury likely secondary to dehydration that has mostly resolved with IV fluids. Plan Continue clindamycin Discontinue fluids follow cultures Elevate leg Continue other home medications including methadone DVT prophylaxis Current Medications Sig/Aminata Start time Last Medication Dose Route Stop Time Status Admin Acetaminophen 650 MG Q6P PRN 01/13 1500 AC PO Acetaminophen/ 1 TAB Q6P PRN 01/13 1500 AC 01/14 Hydrocodone Bitart PO 2038 Alprazolam 0.5 MG FOUR TIMES A DAY PRN 01/15 0000 AC 01/15 PO 01/22 0959 0630 Cefazolin Sodium 1,000 MG IQ8 01/13 1600 DC 05/08 IV 2352 Clindamycin 600 MG IQ8 01/14 1600 AC 05 Dextrose/Water 50 ML IV 0824 Ferrous Sulfate 325 MG TID 01/13 1600 AC 01/14 PO 2221 Heparin Sodium 0 .STK-MED ONE 01/14 1505 DC (Porcine) IV Heparin Sodium 0 .STK-MED ONE 01/14 1355 DC (Porcine) IV Heparin Sodium 5,000 UNIT Q8 01/13 2200 AC 01/15 (Porcine) SC 0553 Lidocaine 0 .STK-MED ONE 01/14 1355 DC .ROUTE Methadone HCl 30 MG QAM 01/14 1000 AC 05 PO 0902 Methadone HCl 20 MG QPM / 2200 AC 01/14 PO 2221 Oxycodone/ 2 TAB Q6P PRN 01/13 1500 AC 01/15 Acetaminophen PO 0625 Senna/Docusate Sodium 1 TAB AT BEDTIME 01/13 2200 AC 01/13 PO 2155 Sodium Chloride 1,000 ML Q10H 01/13 1515 DC 01/15 IV 0626 Zolpidem Tartrate 10 MG QPM 01/13 2200 AC 01/14 PO 2222 Laboratory Tests 01/15 0550 Chemistry Sodium (137 - 145 mmol/L) 135 L Potassium (3.5 - 5.1 mmol/L) 4.4 Chloride (98 - 107 mmol/L) 101 Carbon Dioxide (22 - 30 mmol/L) 28 Anion Gap (5 - 16) 6 BUN (9 - 20 mg/dL) 40 H Creatinine (0.7 - 1.2 mg/dL) 1.1 Estimated GFR (>60 ml/min) > 60 BUN/Creatinine Ratio (7 - 25 %) 36.4 H Magnesium (1.6 - 2.3 mg/dL) 1.8 Hematology CBC w Diff NO MAN DIFF REQ WBC (4.8 - 10.8 /CUMM) 4.9 RBC (4.70 - 6.10 /CUMM) 3.10 L Hgb (14.0 - 18.0 G/DL) 8.4 L Hct (42 - 52 %) 25.8 L MCV (80.0 - 94.0 FL) 83.1 MCH (27.0 - 31.0 PG) 27.2 RDW (11.5 - 14.5 %) 16.0 H Plt Count (130 - 400 /CUMM) 126 L MPV (7.4 - 10.4 FL) 9.7 Gran % (42.2 - 75.2 %) 75.2 Lymphocytes % (20.5 - 51.1 %) 15.9 L Monocytes % (1.7 - 9.3 %) 5.5 Eosinophils % (0 - 5 %) 3.1 Basophils % (0.0 - 2.0 %) 0.3 Absolute Granulocytes (1.4 - 6.5 /CUMM) 3.7 Absolute Lymphocytes (1.2 - 3.4 /CUMM) 0.8 L Absolute Monocytes (0.10 - 0.60 /CUMM) 0.3 Absolute Eosinophils (0.0 - 0.7 /CUMM) 0.2 Absolute Basophils (0.0 - 0.2 /CUMM) 0 PUBS MCHC (33.0 - 37.0 G/DL) 32.8 L Vital Signs Date Time Temp Pulse Resp B/P B/P Pulse O2 O2 Flow FiO2 Mean Ox Delivery Rate 01/15 0656 97.7 60 18 126/66 99 Room Air 01/15 2228 98.8 77 20 130/72 95 Room Air
[2017-01-15 14:01] VITALS: BP 118/60
--- NOTE | 2017-01-15 14:43 | NUR ---
WOUND CARE: MULTI LAYER COMPRESSION WRAPS REAPPLIED TO PASCALE LEGS PER DR BRIONES REQUEST - NEXT DRESSING CHANGE DUE FRIDAY
[2017-01-15 22:07] VITALS: BP 120/70
--- NOTE | 2017-01-16 06:31 | PN- Housestaff ---
Subjective Follow-up For: Right lower extremity cellulitis Subjective: I saw and examined the patient today morning. He still reports pain in his right lower extremity, getting better. Feels better, offers no concerns. Reports his pain is well controlled with the current regimen. Review of Systems Constitutional: Reports: see HPI. Comments: ROS negative except the above. Objective Last 24 Hrs of Vital Signs/I&O Vital Signs Date Time Temp Pulse Resp B/P B/P Pulse O2 O2 Flow FiO2 Mean Ox Delivery Rate 01/15 2207 98.5 67 22 120/70 98 01/15 1401 97.9 68 18 118/60 96 01/15 0656 97.7 60 18 126/66 99 Room Air Intake & Output 01/16 0800 01/16 0000 01/15 1600 Intake Total 200 1120 Output Total Balance 200 1120 Intake, IV 80 120 Intake, Oral 120 1000 Physical Exam General Appearance: Alert, Oriented X3, Cooperative, No Acute Distress Skin: No Rashes, Raised erthema over his right lower extremity. improving HEENT: Atraumatic, PERRLA, EOMI Neck: Supple Cardiovascular: Normal S1, Normal S2 Lungs: Clear to Auscultation, Normal Air Movement Abdomen: Normal Bowel Sounds, Soft, No Tenderness Neurological: Normal Tone, Sensation Intact, Cranial Nerves 3-12 NL Extremities: No Clubbing, No Cyanosis, significant edema over the lower extremities rt>lt. Current Medications: Current Medications Sig/Aminata Start time Last Medication Dose Route Stop Time Status Admin Acetaminophen 650 MG Q6P PRN 01/13 1500 AC PO Acetaminophen/ 1 TAB Q6P PRN 01/13 1500 AC 01/16 Hydrocodone Bitart PO 0543 Alprazolam 0.5 MG FOUR TIMES A DAY PRN 01/15 0000 AC 01/16 PO 01/22 0959 0542 Clindamycin 600 MG IQ8 01/14 1600 AC 01/16 Dextrose/Water 50 ML IV 0026 Ferrous Sulfate 325 MG TID 01/13 1600 AC 01/15 PO 2222 Heparin Sodium 5,000 UNIT Q8 01/13 2200 AC 01/16 (Porcine) SC 0544 Magnesium Oxide 400 MG ONE ONE 01/15 1615 DC 01/15 PO 01/15 1616 1822 Methadone HCl 30 MG QAM 01/14 1000 AC 01/15 PO 0935 Methadone HCl 20 MG QPM 01/13 220 AC 01/15 PO 2222 Oxycodone/ 2 TAB Q6P PRN 01/13 1500 AC 01/15 Acetaminophen PO 1405 Patient Medication 1 ED .STK-MED ONE 01/15 1401 DC Teaching ED 01/15 1402 Senna/Docusate Sodium 1 TAB AT BEDTIME 01/130 AC 01/13 PO 2155 Sodium Chloride 1,000 ML Q10H 01/13 1515 DC 01/15 IV 0626 Zolpidem Tartrate 10 MG QPM 01/13 2200 01/15 PO 2223 Assessment/Plan Assessment: Patient is a 66 YO M with PMH significant for HTN, chronic pain syndrome (on methadone), chronic venous insufficiency, 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 He was referred from the wound care center. Intial labs significant for Cr 1.5 (baseline 1.2), lactic acid 2.2 dropped down to 1.2 Underwent PICC which was placed intially was pulled out without his knowledge. Plan Admitted to general medicine floor Extensive right leg cellulits * History of MRSA & chronic venous insufficiency * Continue clindamycin IV 600mg Q8 via PICC line. * Leg elevation * wound consult ALYSSA * Cr of 1.1 - back to basline --> resolved. Drop in H&H * sudden drop in H&H from 30 to 8.6/25.9 in a normocytic anemia patient. * we will repeat CBC tomorrow and guiac all the stools - negative so far. * On FeSo4 325mg TID. Patient claims that he had treatment for his hepatits C at [facility] - completed a month ago but need to be monitored every month with a blood test. He is asking us to repeat the test here. Chronic stable conditions Anxiety - Alprazolam 0.5mg QID chronic pain syndrome - methadone 30mg QAM and 20mg QPM daily HTN: lisinopril/HCTZ daily - on hold - BP is on lower side. Amemia: Ferrous sulphate 325mg TID Insomnia: Zolpidem 10mg at bedtime Supplements: multivitamin DVT prophylaxis * SC heparin 5000units TID Code Status * Full code Problem List: 1. Wound infection 2. Cellulitis, leg 3. ALYSSA (acute kidney injury) Pain Ratin Pain Location: right lower extremity Pain Goal: Pain 4 or less Pain Plan: Tylenol, vicodine, percocet Tomorrow's Labs & Rationales: bep to monitor renal function
[2017-01-16 06:49] VITALS: BP 140/76
--- NOTE | 2017-01-16 08:31 | PN- Wound Care ---
Subjective Subjective: Patient feels well. Erythema is markedly improved Objective Vital Signs and I&Os Vital Signs Result Date Time Pulse Ox 96 01/16 649 B/P 140/76 01/16 0649 O2 Delivery Room Air 01/16 649 Temp 98.0 01/16 0649 Pulse 67 01/16 0649 Resp 20 01/16 0649 O2 Flow Rate Room Air 01/13 1845 Intake & Output 01/16 0000 01/15 1600 01/15 0800 Intake Total 1120 1280 Output Total Balance 1120 1280 Intake, IV 120 800 Intake, Oral 1000 480 Legs are dressed with bilateral compression dressings. Left dressing change yesterday had markedly decreased drainage and continued epithelialization. Right leg erythema is fading Impression/Plan Impression/Plan Impression/Plan: 66-year-old gentleman with history of diabetes prior left toe osteomyelitis chronic recurrent venous stasis ulcerations admitted with cellulitis of the right leg. Recommend aggressive elevation antibiotics Xeroform daily. Multilayer compression dressing on the left leg will be changed tomorrow in anticipation of discharge. Complete course of antibiotics
--- NOTE | 2017-01-16 09:12 | PN- Att Addend ---
Attending Addendum Attending Brief Note Patient reports improved pain and redness right lower extremity General Appearance: Alert, No Acute Distress Skin: Grossly normal HEENT: PEERLA Neck: Supple, No JVD Cardiovascular: Regular Rate, Normal S1, Normal S2, No Murmurs Lungs: Clear to Auscultation, Normal Air Movement Abdomen: Normal Bowel Sounds, Soft, No Tenderness Neurological: Normal Speech, Strength at 5/5 X4 Ext, Cranial Nerves 3-12 NL, Reflexes 2+ Extremities: Right lower extremity cellulitis extending from upper thigh up to upper leg Assessment 66-year-old with history of hypertension, chronic pain syndrome, chronic venous insufficiency, mood disorder, left foot osteomyelitis with MRSA wound infection presenting with chills, fever and redness with pain right lower extremity. Given history of MRSA in the past with cover him for the same. Also noted acute kidney injury likely secondary to dehydration that has mostly resolved with IV fluids. Plan Continue iv clindamycin for 1 more day Elevate leg Continue other home medications including methadone DVT prophylaxis Current Medications Sig/Aminata Start time Last Medication Dose Route Stop Time Status Admin Acetaminophen 650 MG Q6P PRN 01/13 1500 AC PO Acetaminophen/ 1 TAB Q6P PRN 01/13 1500 AC 01/16 Hydrocodone Bitart PO 0543 Alprazolam 0.5 MG FOUR TIMES A DAY PRN 01/15 0000 AC 01/16 PO 01/22 0959 0542 Clindamycin 600 MG IQ8 01/14 1600 AC 01/16 Dextrose/Water 50 ML IV 0824 Ferrous Sulfate 325 MG TID 01/13 1600 AC 01/16 PO 0907 Heparin Sodium 5,000 UNIT Q8 01/13 2200 AC 01/16 (Porcine) SC 0544 Magnesium Oxide 400 MG ONE ONE 01/15 1615 DC 01/15 PO 01/15 1616 1822 Methadone HCl 30 MG QAM 01/14 1000 AC 01/16 PO 0907 Methadone HCl 20 MG QPM 01/13 2200 AC 01/15 PO 2222 Oxycodone/ 2 TAB Q6P PRN 01/13 1500 AC 01/15 Acetaminophen PO 1405 Patient Medication 1 ED .STK-MED ONE 01/15 1401 DE Teaching ED 01/15 1402 Senna/Docusate Sodium 1 TAB AT BEDTIME 01/13 2200 AC 01/13 PO 2155 Zolpidem Tartrate 10 MG QPM 01/13 2200 AC 01/15 PO 2223 Vital Signs Date Time Temp Pulse Resp B/P B/P Pulse O2 O2 Flow FiO2 Mean Ox Delivery Rate 01/16 0649 98.0 67 20 140/76 96 Room Air 01/15 2207 98.5 67 22 120/70 98 01/15 1401 97.9 68 18 118/60 96
[2017-01-16 14:05] VITALS: BP 118/74
--- NOTE | 2017-01-16 14:15 | NUR ---
PHYSICAL THERAPY- CONSULT RECEIVED, CHART REVIEWED. PT CURRENTLY INDEPENDENT DURING THIS ADMIT FOR ALL MOBILITY, AND PLAN FOR HOME SELF CARE ?HOME CARE FOR DRESSING CHANGES. NO SKILLED ACUTE P.T. NEEDS, WILL NOT FOLLOW.
--- NOTE | 2017-01-16 20:16 | Patient Discharge Instructions ---
Discharge Instructions General Discharge Information You were seen/treated for: right leg cellulitis Watch for these problems: Any worsening of the skin erythema, swelling, fever, chills needs immediate medical attention. Special Instructions: Please follow up with in a week Please follow up with wound care Please take your medications regularly Diet Continue normal diet: Yes Activity Full Activity/No Limits: Yes Activity Self Limited: Yes Acute Coronary Syndrome Inclusion Criteria At DC or during hospital stay patient has or had the following: ACS DIAGNOSIS No Discharge Core Measures Meds if any: Prescribed or Continued at Discharge Meds if any: NOT Prescribed or Continued at Discharge Congestive Heart Failure Inclusion Criteria At DC or during hospital stay patient has or had the following: CHF DIAGNOSIS No Discharge Core Measures Meds if any: Prescribed or Continued at Discharge Meds if any: NOT Prescribed or Continued at Discharge Cerebrovascular accident Inclusion Criteria At DC or during hospital stay patient has or had the following: CVA/TIA Diagnosis No Discharge Core Measures Meds if any: Prescribed or Continued at Discharge Meds if any: NOT Prescribed or Continued at Discharge Venous thromboembolism Inclusion Criteria VTE Diagnosis No VTE Type NONE VTE Confirmed by (Test) NONE Discharge Core Measures - Per Current guidelines, there needs to be overlap - treatment for the first 5 days of Warfarin therapy. - If discharged on Warfarin prior to 5 days of - overlap therapy, the patient will need to be - assessed for post discharge needs including - *Post discharge parental anticoagulation - *Warfarin and/or parental anticoagulation education - *Follow up date to check INR post discharge At least 5 days overlap therapy as Inpatient No Meds if any: Prescribed or Continued at Discharge Note: Overlap Therapy is Warfarin and Anticoagulant Meds if any: NOT Prescribed or Continued at Discharge
[2017-01-16 22:34] VITALS: BP 135/69
[2017-01-17 06:35] VITALS: BP 138/68
--- NOTE | 2017-01-17 07:10 | PN- Housestaff ---
Subjective Follow-up For: Right leg cellulitis Subjective: I saw and examined the patient today morning He is doing much in terms of pain, erthema on his legs and overall. Claims he slept well, no overnight issues. Review of Systems Constitutional: Reports: see HPI. Comments: ROS negative except the above. Objective Last 24 Hrs of Vital Signs/I&O Vital Signs Date Time Temp Pulse Resp B/P B/P Pulse O2 O2 Flow FiO2 Mean Ox Delivery Rate 01/17 0635 98.1 67 20 138/68 95 Room Air 01/16 2234 98.4 64 18 135/69 97 Room Air 01/16 1405 98.3 87 20 118/74 96 Intake & Output 01/17 0800 01/17 0000 01/16 1600 Intake Total 600 750 Output Total Balance 600 750 Intake, IV 50 Intake, Oral 600 700 Number 1 1 Bowel Movements Patient 149.685 kg Weight Physical Exam General Appearance: Alert, Oriented X3, Cooperative, No Acute Distress Skin: Significant erythema over the leg -- improving. HEENT: Atraumatic, PERRLA, EOMI Neck: Supple Cardiovascular: Normal S1, Normal S2 Lungs: Clear to Auscultation, Normal Air Movement Abdomen: Normal Bowel Sounds, Soft, No Tenderness Neurological: Normal Speech, Strength at 5/5 X4 Ext, Normal Tone, Sensation Intact, Cranial Nerves 3-12 NL Extremities: No Clubbing, No Cyanosis Assessment/Plan Assessment: Patient is a 66 YO M with PMH significant for HTN, chronic pain syndrome (on methadone), chronic venous insufficiency, 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 He was referred from the wound care center. Intial labs significant for Cr 1.5 (baseline 1.2), lactic acid 2.2 dropped down to 1.2 Underwent PICC which was placed intially was pulled out without his knowledge. Plan Admitted to general medicine floor Extensive right leg cellulits * History of MRSA & chronic venous insufficiency * Removed PICC line today * Converted to oral Clindamycin 300mg Q6 for a total of 10days. * Leg elevation ALYSSA * Cr of 1.1 - back to basline --> resolved. Drop in H&H * sudden drop in H&H from 30 to 8.6/25.9 in a normocytic anemia patient. * Stool guiac negative. had some bruising and blood loss with PICC Line accidental removal. * On FeSo4 325mg TID. Patient claims that he had treatment for his hepatits C at [facility] - completed a month ago but need to be monitored every month with a blood test. He is asking us to repeat the test here. Chronic stable conditions Anxiety - Alprazolam 0.5mg QID chronic pain syndrome - methadone 30mg QAM and 20mg QPM daily HTN: lisinopril/HCTZ daily - we will continue at discharge. Amemia: Ferrous sulphate 325mg TID Insomnia: Zolpidem 10mg at bedtime Supplements: multivitamin DVT prophylaxis * SC heparin 5000units TID Code Status * Full code Problem List: 1. Wound infection 2. Cellulitis, leg 3. ALYSSA (acute kidney injury) Pain Ratin Pain Location: right leg Pain Goal: Pain 4 or less Pain Plan: Tylenol prn methadone percocet Tomorrow's Labs & Rationales: none
[2017-01-17 08:14] LABS: ABSOLUTE BASOPHIL COUNT 0 /CUMM (0.0-0.2); ABSOLUTE EOSINOPHIL COUNT 0.1 /CUMM (0.0-0.7); ABSOLUTE GRANULOCYTE CT 3.1 /CUMM (1.4-6.5); ABSOLUTE LYMPH COUNT 0.8 /CUMM (1.2-3.4); ABSOLUTE MONOCYTE COUNT 0.2 /CUMM (0.10-0.60); BASOPHIL % 0.6 % (0.0-2.0); EOSINOPHIL % 2.8 % (0-5); GRANULOCYTE % 73.5 % (42.2-75.2); HEMATOCRIT 27.5 % (42-52); MEAN CORPUSCULAR HGB 27.3 PG (27.0-31.0); MEAN CORPUSCULAR HGB CONC 33.4 G/DL (33.0-37.0); MEAN CORPUSCULAR VOLUME 81.7 FL (80.0-94.0); MEAN PLATELET VOLUME 9.6 FL (7.4-10.4); PLATELET COUNT 184 /CUMM (130-400); RBC DISTRIBUTION WIDTH 15.8 % (11.5-14.5); RED BLOOD CELL CT 3.37 /CUMM (4.70-6.10); WHITE BLOOD CELL COUNT 4.2 /CUMM (4.8-10.8)
--- NOTE | 2017-01-17 08:16 | PN- Wound Care ---
Subjective Subjective: Patient feels well without complaints right lower extremity erythema continues to resolve Objective Vital Signs and I&Os Vital Signs Result Date Time Pulse Ox 95 01/17 0635 B/P 138/68 01/17 0635 O2 Delivery Room Air 01/17 635 Temp 98.1 01/17 0635 Pulse 67 01/17 0635 Resp 20 01/17 0635 O2 Flow Rate Room Air 01/13 1845 Intake & Output 01/17 0000 01/16 1600 01/16 0800 Intake Total 600 750 200 Output Total Balance 600 750 200 Intake, IV 50 80 Intake, Oral 600 700 120 Number 1 1 Bowel Movements Patient 330 lb Weight Lower extremity erythema has faded to a large extent bilateral lower extremity multilayer compression dressings are in place and will be changed today Impression/Plan Impression/Plan Impression/Plan: 66-year-old gentleman with history of diabetes prior left toe osteomyelitis chronic recurrent venous stasis ulcerations admitted with cellulitis of the right leg. Recommend aggressive elevation antibiotics Xeroform daily. Multilayer compression dressings will be changed today. Complete course of antibiotics patient will be seen in follow-up on Friday for dressing changes in the wound center
[2017-01-17] MEDS ORDERED: CLINDAMYCIN HC300 M1 PO (08:48)
[2017-01-17] MEDS ORDERED: PERCOCET 5-3251 EACH PO (08:49)
--- NOTE | 2017-01-17 09:19 | PN- Att Addend ---
Attending Addendum Attending Brief Note Patient reports improved pain and redness right lower extremity General Appearance: Alert, No Acute Distress Skin: Grossly normal HEENT: PEERLA Neck: Supple, No JVD Cardiovascular: Regular Rate, Normal S1, Normal S2, No Murmurs Lungs: Clear to Auscultation, Normal Air Movement Abdomen: Normal Bowel Sounds, Soft, No Tenderness Neurological: Normal Speech, Strength at 5/5 X4 Ext, Cranial Nerves 3-12 NL, Reflexes 2+ Extremities: Right lower extremity cellulitis extending from upper thigh up to upper leg Assessment 66-year-old with history of hypertension, chronic pain syndrome, chronic venous insufficiency, mood disorder, left foot osteomyelitis with MRSA wound infection presenting with chills, fever and redness with pain right lower extremity. Given history of MRSA in the past with cover him for the same. Also noted acute kidney injury likely secondary to dehydration that has mostly resolved with IV fluids. Plan Discharge on clindamycin for total 10 days Elevate leg Continue other home medications including methadone Current Medications Sig/Aminata Start time Last Medication Dose Route Stop Time Status Admin Acetaminophen 650 MG Q6P PRN 01/13 1500 AC PO Acetaminophen/ 1 TAB Q6P PRN 01/13 1500 AC 01/16 Hydrocodone Bitart PO 1647 Alprazolam 0.5 MG FOUR TIMES A DAY PRN 01/15 0000 AC 01/17 PO 01/22 0959 0539 Clindamycin 600 MG IQ8 01/14 1600 AC 01/17 Dextrose/Water 50 ML IV 0817 Ferrous Sulfate 325 MG TID 01/13 1600 AC 01/17 PO 0817 Heparin Sodium 5,000 UNIT Q8 01/13 2200 AC 01/17 (Porcine) SC 0539 Methadone HCl 30 MG QAM 01/14 1000 AC 01/17 PO 0817 Methadone HCl 20 MG QPM / 2200 AC 01/16 PO 2155 Oxycodone/ 2 TAB Q6P PRN 01/13 1500 AC 01/17 Acetaminophen PO 0539 Senna/Docusate Sodium 1 TAB AT BEDTIME 01/13 2200 AC 01/13 PO 2155 Zolpidem Tartrate 10 MG QPM / 2200 AC 01/16 PO 2154 Laboratory Tests 01/17 0630 Hematology CBC w Diff NO MAN DIFF REQ WBC (4.8 - 10.8 /CUMM) 4.2 L RBC (4.70 - 6.10 /CUMM) 3.37 L Hgb (14.0 - 18.0 G/DL) 9.2 L Hct (42 - 52 %) 27.5 L MCV (80.0 - 94.0 FL) 81.7 MCH (27.0 - 31.0 PG) 27.3 RDW (11.5 - 14.5 %) 15.8 H Plt Count (130 - 400 /CUMM) 184 MPV (7.4 - 10.4 FL) 9.6 Gran % (42.2 - 75.2 %) 73.5 Lymphocytes % (20.5 - 51.1 %) 19.3 L Monocytes % (1.7 - 9.3 %) 3.8 Eosinophils % (0 - 5 %) 2.8 Basophils % (0.0 - 2.0 %) 0.6 Absolute Granulocytes (1.4 - 6.5 /CUMM) 3.1 Absolute Lymphocytes (1.2 - 3.4 /CUMM) 0.8 L Absolute Monocytes (0.10 - 0.60 /CUMM) 0.2 Absolute Eosinophils (0.0 - 0.7 /CUMM) 0.1 Absolute Basophils (0.0 - 0.2 /CUMM) 0 PUBS MCHC (33.0 - 37.0 G/DL) 33.4 Vital Signs Date Time Temp Pulse Resp B/P B/P Pulse O2 O2 Flow FiO2 Mean Ox Delivery Rate 01/17 0635 98.1 67 20 138/68 95 Room Air 01/16 2234 98.4 64 18 135/69 97 Room Air 01/16 1405 98.3 87 20 118/74 96
--- NOTE | 2017-01-17 13:48 | NUR ---
MD NHUNG NEAL REMOVED PT'S SUTURED PICC IN [facility].
--- NOTE | 2017-01-17 14:45 | Discharge Summary ---
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 He was referred from the wound care center. Intial labs significant for Cr 1.5 (baseline 1.2), lactic acid 2.2 dropped down to 1.2 Underwent PICC which was placed intially was pulled out without his knowledge. Plan Admitted to general medicine floor Extensive right leg cellulits H/O MRSA & chronic venous insufficiency. As there is no evident access PICC line is placed, however on 01/13/17 he pulled out his PICC line accidentally. He had a repeat PICC placed the veryt next day and then started on IV clindamycin IV 600mg Q8 via PICC line from january 14 to . As patient responded well, converted to oral on and then discharged. Encouraged to elveate leg. wound consult He is asked to take clindamycin 300mg Q6hrs for a total of 10days. till january 23. ALYSSA Cr level of 1.5 at admission from baseline 1.2, after gentle hydration back to baseline. Drop in H&H There is a sudden drop in H&H from 10/30 to 8.6/25.9 in a normocytic anemia patient. On FeSo4 325mg TID. Please follow up. Patient claims that he had treatment for his hepatits C at [facility] - completed a month ago but need to be monitored every month with a blood test. He is asking us to repeat the test here. Chronic stable conditions Anxiety - Alprazolam 0.5mg QID chronic pain syndrome - methadone 30mg QAM and 20mg QPM daily HTN: lisinopril/HCTZ daily - on hold - BP is on lower side. Amemia: Ferrous sulphate 325mg TID Insomnia: Zolpidem 10mg at bedtime Supplements: multivitamin DVT prophylaxis * SC heparin 5000units TID Complications: Pulled his PICC line accidentally Allergies: Coded Allergies: Sulfa (Sulfonamide Antibiotics) (RASH 03/01/16) sulfamethoxazole (From SEPTRA) (RASH 03/01/16) trimethoprim (From SEPTRA) (RASH 03/01/16) Significant Procedures: Picc line placement Pertinent Lab Results: as above Disposition Summary Disposition Principal Diagnosis: right leg cellulitis Additional Diagnosis: ALYSSA Anxiety Chronic pain HTN Anemia Insomnia Discharge Disposition: home or self care Discharge Instructions General Discharge Information Code Status: Full Code Patient's Diet: Regular diet Patient's Activity: Activity as tolerated Follow-Up Instructions/Appts: Please follow up with in a week Please follow up with wound care Please take your medications regularly Medications at Discharge Discharge Medications: Continue taking these medications: Multivitamin (Multiple Vitamins) 1 EACH TABLET 1 Tablet ORAL DAILY Comments: NOT GIVEN IN HOSPITAL Ferrous Sulfate (Ferrous Sulfate) 325 MG (65 MG IRON) TABLET 1 Tablet ORAL THREE TIMES DAILY Comments: Last Taken: 01/17/17 Time: 0800 Lisinopril/Hydrochlorothiazide (Lisinopril-Hctz 20-25 MG Tab) 1 EACH TABLET 1 Tablet ORAL DAILY Comments: NOT GIVEN IN HOSPITAL Methadone Hydrochloride (Methadone HCl) 10 MG TABLET 3 Tablet ORAL Every Morning Comments: Last Taken: Time: 0800 Methadone Hydrochloride (Methadone HCl) 10 MG TABLET 2 Tablet ORAL Every night Comments: Last Taken: 01/16/17 Time: 9PM Alprazolam (Xanax) 0.5 MG TABLET 1 Tablet ORAL 4 TIMES A DAY Nystatin (Nystatin) 1 BILLION UNIT POWDER.EA. 1 Application On the skin THREE TIMES DAILY Comments: NOT GIVEN IN HOSPITAL Zolpidem Tartrate (Zolpidem Tartrate) 10 MG TABLET 1 Tablet ORAL Every night Comments: Last Taken: 01/16/17 Time: 9PM Start taking the following new medications: Clindamycin HCl (Clindamycin HCl) 300 MG CAPSULE 1 Capsule ORAL 4 TIMES A DAY Qty = 27 No Refills Comments: Last Taken: 01/17/17 Time: 0800 Copies To: ANALI BURRELL,ZACH Davenport; MADELINE GUERRIER MD, MD Review Statement Documenting Attending: MADELINE GUERRIER MD
== END 2017-01-17 14:24 | DRG 603 ==
LOC: ERH 10:25 → ERHI 14:29 → 2NB 14:29 → ENRESERV 17:05 → 2NB 18:24 → ENPENDDIS 01-17 11:34 → 2NB 01-17 14:24
PROVIDERS: Internal Medicine; Internal Medicine Nephrology; Physician Assistant; ADMIT Internal Medicine
PROC: B214YZZ Fluoroscopy of Right Heart using Other Contrast (ICD-10-PCS; principal; 2017-01-13)
PROC: 02H633Z Insertion of Infusion Device into Right Atrium, Percutaneous Approach (ICD-10-PCS; principal; 2017-01-13)
PROC: B548ZZA Ultrasonography of Superior Vena Cava, Guidance (ICD-10-PCS; 2017-01-14)
PROC: 02HV33Z Insertion of Infusion Device into Superior Vena Cava, Percutaneous Approach (ICD-10-PCS; 2017-01-14)
DX: L03.115 Cellulitis of right lower limb (principal); N17.9 Acute kidney failure, unspecified; L97.819 Non-pressure chronic ulcer of other part of right lower leg with unspecified severity; I87.2 Venous insufficiency (chronic) (peripheral); I10 Essential (primary) hypertension; I83.018 Varicose veins of right lower extremity with ulcer other part of lower leg; B18.2 Chronic viral hepatitis C; F11.99 Opioid use, unspecified with unspecified opioid-induced disorder; F41.9 Anxiety disorder, unspecified; F39 Unspecified mood [affective] disorder; G89.4 Chronic pain syndrome; D64.9 Anemia, unspecified
CPT/HCPCS: 2NBP; 77001; 82436; 87040; C1769; G0463; J0690; J1642; J1644; J1650

== ENCOUNTER 2017-09-09 10:20 | Inpatient (IN) | payer OTHER, MEDICARE ==
[~2017-09-09] VITALS: Ht 190.5 cm; Wt 171.5 kg
[~2017-09-09 10:20] MED LIST changes: +CLINDAMYCIN HC300 M1 PO; +NYSTATIN1 EAC8 TOP; +PERCOCET 5-3251 EACH PO; +PREDNISONE10 M2 PO; +XANAX0.5 M1 PO; +ZOLPIDEM TARTRA10 M1 PO
[2017-09-09 12:33] LABS: ABSOLUTE BASOPHIL COUNT 0 /CUMM (0.0-0.2); ABSOLUTE EOSINOPHIL COUNT 0.1 /CUMM (0.0-0.7); ABSOLUTE GRANULOCYTE CT 5.6 /CUMM (1.4-6.5); ABSOLUTE MONOCYTE COUNT 0.4 /CUMM (0.10-0.60); BASOPHIL % 0.5 % (0.0-2.0); EOSINOPHIL % 0.9 % (0-5); GRANULOCYTE % 78.6 % (42.2-75.2); HEMATOCRIT 35.5 % (42-52); MEAN CORPUSCULAR HGB 23.6 PG (27.0-31.0); MEAN CORPUSCULAR HGB CONC 32.4 G/DL (33.0-37.0); MEAN CORPUSCULAR VOLUME 72.8 FL (80.0-94.0); MEAN PLATELET VOLUME 9.4 FL (7.4-10.4); PLATELET COUNT 288 /CUMM (130-400); RBC DISTRIBUTION WIDTH 17.8 % (11.5-14.5); RED BLOOD CELL CT 4.88 /CUMM (4.70-6.10); WHITE BLOOD CELL COUNT 7.1 /CUMM (4.8-10.8)
--- NOTE | 2017-09-09 12:37 | ED SKIN/ALLERGY COMPLAINT ---
History of Present Illness General Chief Complaint: General Adult Stated Complaint: SENT IN BY MD THORNTON Source: patient, old records Exam Limitations: no limitations Vital Signs & Intake/Output Vital Signs & Intake/Output Vital Signs Date Time Temp Pulse Resp B/P B/P Pulse O2 O2 Flow FiO2 Mean Ox Delivery Rate 09/09 1409 97.2 85 20 137/66 94 Room Air 09/09 1300 130/80 09/09 1028 97.3 83 20 107/73 96 Room Air Allergies Coded Allergies: Sulfa (Sulfonamide Antibiotics) (RASH 03/01/16) sulfamethoxazole (From SEPTRA) (RASH 03/01/16) trimethoprim (From MAYRA) (RASH 03/01/16) Reconcile Medications Alprazolam (Xanax) 0.5 MG TABLET 1 TAB PO 4 TIMES/DAY ANXIETY (Reported) Atorvastatin Calcium 40 MG TABLET 1 TAB PO QPM CHOLESTEROL (Reported) Carvedilol 3.125 MG TABLET 1 TAB PO BID HEART (Reported) Ferrous Sulfate 325 MG (65 MG IRON) TABLET 1 TAB PO TID SUPPLEMENT (Reported) Hydrochlorothiazide 25 MG TABLET 1 TAB PO DAILY WATER RETENTION (Reported) Methadone Hydrochloride (Methadone HCl) 10 MG TABLET 3 TAB PO QAM [facility]AL [facility] (Reported) Methadone Hydrochloride (Methadone HCl) 10 MG TABLET 2 TAB PO QPM [facility] (Reported) Multivitamin (Multiple Vitamins) 1 EACH TABLET 1 TAB PO DAILY VITAMIN SUPPORT (Reported) Temazepam 15 MG CAPSULE 1 CAP PO QPM SLEEP (Reported) Triage Note: PT TO ED FOR CELLULITIS TO RIGHT UPPER LEG. NOTICED ON FRIDAY. PT WAS AT DR BRIONES'S OFFICE THIS AM FOR WOUND VAC CHANGE TO LEFT LEG. AFEBRILE. Triage Nurses Notes Reviewed? yes Onset: Last week Duration: day(s):, constant, continues in ED, getting worse Timing: recent history Severity: moderate Location: extremities Possible Factors: no cause identified No Modifying Factors: none Associated Symptoms: change in skin texture HPI: 3 days prior to admission patient reports increasing redness to right lower extremity about the knee extending to the bilateral upper thighs. He took some leftover antibiotics he had at home minimal improvement in the redness. He denies fever chills nausea vomiting diarrhea abdominal pain chest pain shortness breath headache dysuria bleeding. Past History Travel History Traveled to [place] past 21 day No Medical History Any Pertinent Medical History? 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 No Review of Systems Review of Systems Constitutional: Reports: no symptoms. EENTM: Reports: no symptoms. Respiratory: Reports: no symptoms. Cardiovascular: Reports: no symptoms. GI: Reports: no symptoms. Genitourinary: Reports: no symptoms. Musculoskeletal: Reports: no symptoms. Skin: Reports: see HPI, rash. Neurological/Psychological: Reports: no symptoms. Hematologic/Endocrine: Reports: no symptoms. Immunologic/Allergic: Reports: no symptoms. All Other Systems: Reviewed and Negative Physical Exam Physical Exam General Appearance: well developed/nourished, alert, awake, mild distress, obese Head: atraumatic, normal appearance Eyes: Bilateral: normal appearance, PERRL, EOMI. Ears, Nose, Throat: normal pharynx, normal ENT inspection, hearing grossly normal, moist mucus membranes Neck: normal inspection, supple, full range of motion, no midline tenderness Respiratory: normal breath sounds, chest non-tender, no respiratory distress, quiet respiration, lungs clear Cardiovascular: regular rate/rhythm, normal peripheral pulses, norml femoral pulses equa Peripheral Pulses: 4+ carotid (R), 4+ carotid (L) Gastrointestinal: normal bowel sounds, soft, non-tender, no organomegaly Back: normal inspection, normal range of motion, no vertebral tenderness Extremities: normal inspection, normal capillary refill, normal range of motion, pedal edema Neurologic/Psych: no motor/sensory deficits, awake, alert, oriented x 3, normal mood/affect, sales representatives II-XII nml as tested Reflexes: 2+: bicep (R), bicep (L). Skin: rash Skin Problem Location: lower extremities Skin Problem Character: erythema (med knee, upper thigh), patchy, rash, RLE erythema medial knee upper thigh medial and lateral aspect R pretibial area with denuded / excoriated skin 8x10 cm with surrounding erythema not contiguous to knee lesion without discharge or purulence Lymphatic: no anterior cervical nirav Progress Differential Diagnosis: abscess/cellulitis, allergic reaction, contact dermatitis Plan of Care: Orders Procedure Date/time Status Regular Diet 09/09 L Active LACTIC ACID 09/09 1424 Active LACTIC ACID 09/09 1333 Active Intake & Output 09/09 1300 Active Periph. Inserted Central Cath 09/09 1254 Active Patient Data 09/09 1247 Active OXYGEN SETUP (GEN) 09/09 1232 Active Saline Lock 09/09 1232 Active Admit to inpatient 09/09 1232 Active Vital Signs 09/09 1232 Active Activity/Ambulation 09/09 1232 Active Code Status 09/09 1232 Active BLOOD CULTURE 09/09 1033 Active LACTIC ACID 09/09 1033 Complete COMPREHENSIVE METABOLIC PANEL 09/09 1033 Complete CBC WITHOUT DIFFERENTIAL 09/09 1033 Complete Current Medications Sig/Aminata Start time Last Medication Dose Stop Time Status Admin Vancomycin HCl 2,000 MG ONCE ONE 09/09 1245 AC Sodium Chloride 500 ML 09/09 1444 (Normal Saline 0.9%) Laboratory Tests 09/09/17 1210: Anion Gap 12, Estimated GFR 50 L, BUN/Creatinine Ratio 39.3 H, Glucose 124 H, Lactic Acid 1.6, Calcium 9.3, Total Bilirubin 0.6, AST 145 H, ALT 125 H, Alkaline Phosphatase 176 H, Total Protein 7.6, Albumin 3.7, Globulin 3.9, Albumin/Globulin Ratio 0.9 L, CBC w Diff NO MAN DIFF REQ, RBC 4.88, MCV 72.8 L , MCH 23.6 L, RDW 17.8 H, MPV 9.4, Gran % 78.6 H, Lymphocytes % 14.1 L, Monocytes % 5.9, Eosinophils % 0.9, Basophils % 0.5, Absolute Granulocytes 5.6, Absolute Lymphocytes 1.0 L, Absolute Monocytes 0.4, Absolute Eosinophils 0.1, Absolute Basophils 0, PUBS MCHC 32.4 L Microbiology 09/09 1245 BLOOD: Blood Culture - RECD 09/09 1210 BLOOD: Blood Culture - RECD Departure Departure Disposition: STILL A PATIENT Condition: Stable Clinical Impression Primary Impression: Cellulitis Secondary Impressions: Transaminitis Referrals: Patient Has No Primary Care Dr (PCP/Family) Departure Forms: Customer Survey General Discharge Information Admission Note Spoke With: Luci Cates MD Documentation of Exam: Documentation of any treatments & extenuating circumstances including Concerns Regarding Discharge (functional status, medication knowledge or non-compliance, living conditions, etc.) that warrant an admission rather than observation: IV antibiotics obtain IV access wound care evaluation serial lab exam follow cultures continuing care discharge planning
[2017-09-09] MEDS ORDERED: HYDROCHLOROTHIA25 M1 PO (12:59)
[2017-09-09] MEDS ORDERED: ATORVASTATIN CA40 M1 PO (13:00)
[2017-09-09] MEDS ORDERED: TEMAZEPAM15 M1 PO (13:00)
[2017-09-09] MEDS ORDERED: CARVEDILOL3.125 M1 PO (13:01)
--- NOTE | 2017-09-09 13:02 | History & Physical ---
UrvashiBaldemar lacey 09/09/17 1301: General Information and HPI MD Statement: I have seen and personally examined MAGGIE JRROCK Jolley and documented this H&P. The patient is a 67 year old M who presented with a patient stated chief complaint of []. Source of Information: patient, old records Exam Limitations: no limitations History of Present Illness: This is a 66-year-old male active community dweller, with a past medical history of hypertension, chronic pain syndrome currently on methadone, chronic venous insufficiency, anxiety and mood disorder and osteomyelitis of the distal fifth metatarsal and fifth proximal phalanx, admitted on February 06, 2016 for an open partial left fifth ray resection and has wound vac on that side. This time referrred from wound care by Dr. Mendoza for SSTI of his RLE requiring IV Abx. He is a patient of Dr. Mendoza at wound care center. Cording to patient he saw Dr. Yusra Goel MD in July 2017, who gave him a course of DS bactrim and gentamycin ointment for his chronic lower extremity minor wounds that he finished as was prescribed. Patient had his normal state of health up until 2 weeks ago when he had development of new lesion at the mid uribe of his right lower extremity. He followed up with Dr. Basurto of about the same time for the new-developed lesion; at the time it was decided to manage this lesion conservatively, since patient did not have any symptoms and signs of infection. On Friday evening patient noticed expanding erythema and warmth from the anterior lateral aspect of his right lower extremity stretched down up to 4 fingers above his knee. At the same time he reports subjective fever, shaking and chills but denies any nausea vomiting lightheadedness and dizziness. Sinusitis self medicated himself with leftover antibiotics that he had at home which results in resolution of the majority of new onset erythema. Erythema regressed to a limited region and the anterior lateral of his right hip. He remained asymptomatic and otherwise healthy. Today he noticed appearance of another erythematous in the anterior medial part of his right thigh and posterior lower one third of his right thigh (above the knee) the latest one skin, behind the knee, was [id number], 7 out of 10, warm. Otherwise, patient remanied fairly asymptomatic. Patient denies any trauma, skin abrasion, breakage of any sort, recent travel. Has had good po intake and urination for the past few days. Of note, he also has a Hx of chronic hepatitis C as per him but no records were found for any treatment done in the past. Allergies/Medications Allergies: Coded Allergies: Sulfa (Sulfonamide Antibiotics) (RASH 03/01/16) sulfamethoxazole (From MAYRA) (RASH 03/01/16) trimethoprim (From MAYRA) (RASH 03/01/16) Home Med list Alprazolam (Xanax) 0.5 MG TABLET 1 TAB PO 4 TIMES/DAY ANXIETY (Reported) Atorvastatin Calcium 40 MG TABLET 1 TAB PO QPM CHOLESTEROL (Reported) Carvedilol 3.125 MG TABLET 1 TAB PO BID HEART (Reported) Ferrous Sulfate 325 MG (65 MG IRON) TABLET 1 TAB PO TID SUPPLEMENT (Reported) Hydrochlorothiazide 25 MG TABLET 1 TAB PO DAILY WATER RETENTION (Reported) Methadone Hydrochloride (Methadone HCl) 10 MG TABLET 3 TAB PO QAM [facility] (Reported) Methadone Hydrochloride (Methadone HCl) 10 MG TABLET 2 TAB PO QPM [facility] (Reported) Multivitamin (Multiple Vitamins) 1 EACH TABLET 1 TAB PO DAILY VITAMIN SUPPORT (Reported) Temazepam 15 MG CAPSULE 1 CAP PO QPM SLEEP (Reported) Compliance With Home Meds: GOOD Past History Travel History Traveled to [place] past 21 day No Medical History Neurological: NONE EENT: NONE Cardiovascular: chronic venous insuff, hypertension Respiratory: NONE Gastrointestinal: lower GI bleed, peptic ulcer disease Hepatic: hepatitis C Renal: NONE Musculoskeletal: VENOUS STASIS Psychiatric: mood disorder Endocrine: NONE Blood Disorders: NONE Cancer(s): 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 , stays alone Services at Home: None Primary Language: Lao ETOH Use: denies use Illicit Drug Use: denies illicit drug use Functional Ability ADLs Independent: dressing, eating, toileting, bathing. Ambulation: independent IADLs Independent: shopping, housework, finances, food prep, telephone, transportation , medication admin. Review of Systems Review of Systems Constitutional: Reports: see HPI. Cardiovascular: Reports: no symptoms. Respiratory: Reports: no symptoms. Musculoskeletal: Reports: no symptoms. Skin: Reports: see HPI, change in skin color, erythema, lesions. All Other Systems: Reviewed and Negative Exam & Diagnostic Data Last 24 Hrs of Vital Signs/I&O Vital Signs Date Time Temp Pulse Resp B/P B/P Pulse O2 O2 Flow FiO2 Mean Ox Delivery Rate 09/09 1409 97.2 85 20 137/66 94 Room Air 09/09 1300 130/80 09/09 1028 97.3 83 20 107/73 96 Room Air Intake & Output 09/09 1600 09/09 0800 09/09 0000 Intake Total Output Total Balance Patient 380 lb Weight Weight Estimated Measurement Method Physical Exam General Appearance Alert, Oriented X3, Cooperative, No Acute Distress Skin skin lesion and right uribe , multiple patches of erythema on right tigh at different ages HEENT Atraumatic, PERRLA, EOMI, MM is dry Lymphatic Axillary nl, Cervical nl Cardiovascular Normal S1, Normal S2, No Murmurs Abdomen Soft, No Tenderness Extremities 3x3 round skin lesion on mid uribe; no drainage , patches of redness of right tigh and right femure region; one, at the back of the tigh is associated with warmth and tenderness; no puss Vascular diminished peripheral pulses , veous stasis Body Front and Back (Adult) 1) skin lesion 2) erythema warmth tender 3) erythema 4) erythema Last 24 Hrs of Labs/Yung: Laboratory Tests 09/09/17 1210: Anion Gap 12, Estimated GFR 50 L, BUN/Creatinine Ratio 39.3 H, Glucose 124 H, Lactic Acid 1.6, Calcium 9.3, Total Bilirubin 0.6, AST 145 H, ALT 125 H, Alkaline Phosphatase 176 H, Total Protein 7.6, Albumin 3.7, Globulin 3.9, Albumin/Globulin Ratio 0.9 L, CBC w Diff NO MAN DIFF REQ, RBC 4.88, MCV 72.8 L , MCH 23.6 L, RDW 17.8 H, MPV 9.4, Gran % 78.6 H, Lymphocytes % 14.1 L, Monocytes % 5.9, Eosinophils % 0.9, Basophils % 0.5, Absolute Granulocytes 5.6, Absolute Lymphocytes 1.0 L, Absolute Monocytes 0.4, Absolute Eosinophils 0.1, Absolute Basophils 0, PUBS MCHC 32.4 L Microbiology 09/09 1245 BLOOD: Blood Culture - RECD 09/09 1210 BLOOD: Blood Culture - RECD Assessment/Plan Assessment: This is a 67-year-old male with a past medical history of osteomyelitis of the fifth toe status post resection and long-term antibiotics, in February 2016, hypertension, and prior admissions for cellulitis of right lower extermity and chronic venous insufficiency was admitted for non- prulent SSTI requires IV Abx therapy. Vitals at the time of admission shows initial Blood pressure 107/73, respiration rate of 20, pulse rate of 83, temperature 97 latest: BP: 137/66, VA 85 Labs at the time of admission WBC is 7.8, hemoglobin 11.5 hematocrit of 36 platelet 288 , sodium of 141 , potassium of 4.1, creatinine 1.4 , BUNs of 55, lactic acid of ?? Assessment 1. Nonpurulent Cellulitis of the right leg extending up to the midthigh 2. History of hypertension 3. ALYSSA secondary to ATN 2/2 to hypotension-Pre renal azothemia 4. Hx of osteomyelitis of fifth toe w/ Cx + for MRSA and psuedomonas; status post resection 5.Chronic pain syndrome and on methadone therapy Plan admit to general medicine floor Follow microbiology results Received one dose of vanco in the ED- no more vancomycin IV cefazolin for cellulitis Methadone 30 mg in the am and 20 mg at bedtime Wound care consult in the morning Leg elevation Place PICC line For patient's acute kidney injury IV hydration normal saline at 100 mL per hour after giving another bolus of 1 L. To be noted that the patient received no IV fluidsin the e emergency department. Repeat lactic acid in the morning Hold HCTZ 25 mg- Resume in AM if Creatinie is better. Continue carvedilol 3.25 continue crestor 40 mg po daily Repeat CBC and basic electrolyte panel in the morning DVT prophylaxis with subcutaneous heparin Pain pathway DVT prophylaxis at all times patient is full code Core Measures/Misc (05/25) Acute Coronary Syndrome ACS Diagnosis: No Congestive Heart Failure Congestive Heart Failure Diagnosis No Cerebrovascular Accident CVA/TIA Diagnosis: No VTE (View Protocol) VTE Risk Factors Obesity No Mechanical VTE Prophylaxis d/t Medical Contraindication No VTE Pharm Prophylaxis d/t NA PharmProphylax ordered Sepsis (View protocol) Sepsis Present: No Resident Review Statement Resident Statement: examined this patient, discussed with supervisor international reservations, agreed with supervisor international reservations, discussed with family, reviewed EMR data (avail), discussed with nursing , discussed with case mgmt, reviewed images, amended to note Yue BURRELL,Jennifer 09/09/17 0754: Assessment/Plan As Ranked By This Provider Problem List: 1. Peripheral vascular disease 2. Cellulitis, leg 3. 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 He is followed at the wound care center and has chronic wound on the left lower extremity which is stable. He is here now for what appears to be a cellulitis on the anterolateral right thigh area and the right lower extremity. There is no purulence or skin breakdown so I'm not so worried about MRSA at this point. We'll bring him into GEN med, follow his cultures and treat him with IV Ancef which will cover sensitive staph and strep. We'll continue his Coreg, his methadone, his statin and his Xanax. He has mild ALYSSA with borderline blood pressure so will hydrate him and hold the hydrochlorothiazide today. We'll put him on DVT prophylaxis and have a wound care consult.
--- NOTE | 2017-09-09 14:38 | Admission Certification ---
Admission Certification Certification Statement - As attending physician, I certify that at the time of - admission, based on clinical presentation, severity of - symptoms, need for further diagnostic testing and - therapeutic interventions, and risk of adverse outcomes - without in-hospital treatment, in my clinical assessment, - this patient requires an acute hospital stay for a minimum - of two nights or longer. I have also considered psychsocial - factors such as support system, advanced age, financial - issues, cognitive issues, and failed out-patient treatments, - past re-admission history, safety of patient, and lack of - compliance as applicable. Specific rationale supporting this admission is: Severe cellulitis needs IV antibiotics.
[2017-09-09 15:20] VITALS: BP 126/60
[2017-09-09 22:28] VITALS: BP 128/80
[2017-09-10 06:59] VITALS: BP 124/76
--- NOTE | 2017-09-10 08:30 | PN- Wound Care ---
Subjective Subjective: Patient mid yesterday for recurrent cellulitis of his right leg in the setting of chronic venous stasis ulcer. Left leg ulcers with VAC in place are clean without evidence of infection, he has had evidence of MRSA and Pseudomonas in the past, Objective Vital Signs and I&Os Vital Signs Result Date Time Pulse Ox 96 09/10 0559 B/P 124/76 09/10 0659 O2 Delivery Room Air 09/10 658 Temp 98.1 09/10 0559 Pulse 80 09/10 0559 Resp 18 09/10 0659 Intake & Output 09/10 0000 09/09 1600 09/09 0800 Intake Total 1075 Output Total Balance 1075 Intake, IV 175 Intake, Oral 900 Patient 380 lb Weight Weight Reported by Patient Measurement Method Physical Exam: Exam of the right leg shows there to be extensive areas of erythema and ecchymoses over the pretibial area is approximately 7 x 4 cm venous stasis ulcer which is partially epithelialized Impression/Plan Impression/Plan Impression/Plan: 67-year-old gent with chronic venous insufficiency venous hypertension admitted with acute cellulitis of his right leg in the setting of a chronic venous stasis ulcer. Recommend leg elevation aggressive cleansing and Xeroform daily. Adjust antibiotics based on prior cultures until recent cultures are available. Evaluate abnormal LFTs per primary care team. Agree with hydration and follow- up renal function
--- NOTE | 2017-09-10 09:48 | PN- Housestaff ---
Sami BURRELL,[facility] 09/10/17 0948: Subjective Follow-up For: Cellulitis Subjective: Patient was seen and examined this morning, denied any fever, chills, tenderness of the infected limp. Tolerated diet well, ambulate around the room with no issues. Patient had peripheral line placed by Romy yesterday however overnight was pulled off and couldn't be used. We will try to get PICC line today. Review of Systems Constitutional: Reports: see HPI. Objective Last 24 Hrs of Vital Signs/I&O Vital Signs Date Time Temp Pulse Resp B/P B/P Pulse O2 O2 Flow FiO2 Mean Ox Delivery Rate 09/10 1450 98.0 79 18 136/70 98 Room Air 09/10 1057 98.1 80 18 124/76 09/10 0659 98.1 80 18 124/76 96 Room Air 09/09 2228 98.1 91 20 128/80 98 Room Air 09/09 2055 91 128/80 Intake & Output 09/10 1600 09/10 0800 09/10 0000 Intake Total 900 1075 Output Total 250 Balance -355 048 1390 Intake, IV 400 175 Intake, Oral 500 900 Output, Urine 250 Physical Exam General Appearance: Alert, Oriented X3, Cooperative, No Acute Distress Skin: No Rashes Skin Temp/Moisture Exam: Warm/Dry HEENT: Atraumatic, PERRLA, EOMI, Mucous Membr. moist/pink Neck: Supple Cardiovascular: Regular Rate, Normal S1, Normal S2, No Murmurs Lungs: Clear to Auscultation, Normal Air Movement Abdomen: Normal Bowel Sounds, Soft, No Tenderness Neurological: Normal Gait, Normal Speech, Strength at 5/5 X4 Ext, Normal Tone, Sensation Intact, Cranial Nerves 3-12 NL, Reflexes 2+ Extremities: No Clubbing, No Cyanosis, erythema and warmness over the anterolateral surface of right hip, no tenderness Assessment/Plan Assessment: Mr. Rivera is 67-year-old male with PMH of osteomyelitis of the fifth toe status post ambutation 2016, hypertension, chronic venous insufficiency was admitted for non- prulent SSTI requires IV Abx therapy. Problem list 1. Nonpurulent Cellulitis of the right leg extending up to the midthigh 2. History of hypertension 3. ALYSSA secondary to ATN 2/2 to hypotension-Pre renal azothemia 4. Hx of osteomyelitis of fifth toe w/ Cx + for MRSA and psuedomonas; status post resection 5.Chronic pain syndrome and on methadone therapy Plan -Continue antibiotic IV cefazolin -Follow up blood cultures -Daniel consultation was obtained, thanks for recommendation -Attempt to place PICC line today by Romy was filled as she couldn't advance the wire and patient's end up with midline, IR was contacted to place PICC line in a.m. -Follow up SYSTEMS INTEGRATION MANAGER, PEEP and liver function test -Methadone 30 mg in the am and 20 mg at bedtime -Lactic acid resolved, discontinue IV fluid -Hold HCTZ 25 mg- Resume if Creatinie is better -Continue carvedilol 3.25, crestor 40 mg po daily DVT prophylaxis with subcutaneous heparin Diet regular Full code Consultation wound care Problem List: 1. Cellulitis, leg Pain Ratin Pain Location: n/a Pain Goal: Pain 4 or less Pain Plan: See medication Tomorrow's Labs & Rationales: NONE, waiting for PICC line Jennifer Turner MD 09/10/17 1205: Attending MD Review Statement Attending Statement Attending MD Statement: examined this patient, discuss w/resident/PA/COUNSELOR SUPERVISOR, agreed w/resident/PA/COUNSELOR SUPERVISOR, reviewed EMR data (avail), discussed with nursing, reviewed images Attending Assessment/Plan: Events overnight noted. The IV nurse got a peripheral IV in the patient and the patient got 2 doses of Ancef but than the IV came out accidentally. We will need to put a PICC line for access and for blood draws. He is a 67-year-old male with morbid obesity, history of osteomyelitis in the past with a chronic left lower extremity wound and wound VAC here with a right thigh cellulitis. We are treating him with IV Ancef and will follow closely. The etiology of his elevated transaminases is unclear. His bilirubin is normal and on his last MRI of his abdomen he does have hepatosplenomegaly. Will also need to get a good history regarding questionable history of hepatitis C and follow-up
[2017-09-10 14:50] VITALS: BP 136/70
[2017-09-10 15:08] LABS: ABSOLUTE BASOPHIL COUNT 0 /CUMM (0.0-0.2); ABSOLUTE EOSINOPHIL COUNT 0.1 /CUMM (0.0-0.7); ABSOLUTE GRANULOCYTE CT 4.2 /CUMM (1.4-6.5); ABSOLUTE LYMPH COUNT 0.9 /CUMM (1.2-3.4); ABSOLUTE MONOCYTE COUNT 0.3 /CUMM (0.10-0.60); BASOPHIL % 0.4 % (0.0-2.0); EOSINOPHIL % 2.2 % (0-5); GRANULOCYTE % 75.9 % (42.2-75.2); MEAN CORPUSCULAR HGB 23.3 PG (27.0-31.0); MEAN CORPUSCULAR HGB CONC 31.9 G/DL (33.0-37.0); MEAN CORPUSCULAR VOLUME 73.1 FL (80.0-94.0); MEAN PLATELET VOLUME 9.5 FL (7.4-10.4); PLATELET COUNT 232 /CUMM (130-400); RED BLOOD CELL CT 4.14 /CUMM (4.70-6.10); WHITE BLOOD CELL COUNT 5.5 /CUMM (4.8-10.8)
[2017-09-10 15:10] LABS: HEMATOCRIT 30.3 % (42-52)
[2017-09-10 22:09] VITALS: BP 138/68
[2017-09-11 06:27] VITALS: BP 134/66
--- NOTE | 2017-09-11 08:08 | PN- Housestaff ---
Sami BURRELL,[facility] 09/11/17 0808: Subjective Follow-up For: cellulitis Subjective: Patient was seen and examined this morning, overnight no complaint. Plan to place a PICC line by IR today. Attempts to place PICC line yesterday failed and patient did up having midline. Wound VAC was removed yesterday due to mild function Review of Systems Constitutional: Reports: see HPI. Objective Last 24 Hrs of Vital Signs/I&O Vital Signs Date Time Temp Pulse Resp B/P B/P Pulse O2 O2 Flow FiO2 Mean Ox Delivery Rate 09/11 0627 98.0 66 18 134/66 95 Room Air 09/10 2209 98.1 86 19 138/68 99 Room Air 09/10 2129 86 138/68 09/10 1450 98.0 79 18 136/70 98 Room Air 09/10 1057 98.1 80 18 124/76 Intake & Output 09/11 1600 09/11 0800 09/11 0000 Intake Total 200 480 Output Total Balance 200 480 Intake, Oral 200 480 Number 0 Bowel Movements Physical Exam General Appearance: Alert, Oriented X3, Cooperative, No Acute Distress Skin: No Rashes Skin Temp/Moisture Exam: Warm/Dry HEENT: Atraumatic, PERRLA, EOMI, Mucous Membr. moist/pink Neck: Supple Cardiovascular: Regular Rate, Normal S1, Normal S2, No Murmurs Lungs: Clear to Auscultation, Normal Air Movement Abdomen: Normal Bowel Sounds, Soft, No Tenderness Neurological: Normal Gait, Normal Speech, Strength at 5/5 X4 Ext, Normal Tone, Sensation Intact, Cranial Nerves 3-12 NL, Reflexes 2+ Extremities: No Clubbing, No Cyanosis, No Edema, Normal Pulses, ERythema about the same over the anterolateral and posterior serfaces of right hip LE wounds with bandages Assessment/Plan Assessment: Mr. Rivera is 67-year-old male with PMH of osteomyelitis of the fifth toe status post ambutation 2016, hypertension, chronic venous insufficiency was admitted for non- prulent SSTI requires IV Abx therapy. Problem list 1. Nonpurulent Cellulitis of the right leg extending up to the midthigh 2. History of hypertension 3. ALYSSA secondary to ATN 2/2 to hypotension-Pre renal azothemia 4. Hx of osteomyelitis of fifth toe w/ Cx + for MRSA and psuedomonas; status post resection 5.Chronic pain syndrome and on methadone therapy Plan -Continue antibiotic IV cefazolin -Follow up blood cultures -Wand consultation was obtained, thanks for recommendation -Attempt to place PICC line by IR today -LFt slightly improved, HX of Hep C treated at [facility] last year -Obtain Hep panel -Methadone 30 mg in the am and 20 mg at bedtime -Hold HCTZ 25 mg- Resumeupon discharge if creatinine improved -Continue carvedilol 3.25, crestor 40 mg po daily DVT prophylaxis with subcutaneous heparin Diet regular Full code Consultation wound care Problem List: 1. Cellulitis, leg Pain Ratin Pain Location: N/A Pain Goal: Pain 4 or less Pain Plan: See medication Tomorrow's Labs & Rationales: CBC BMP Yue BURRELL,Jennifer 09/11/17 0914: Attending MD Review Statement Attending Statement Attending MD Statement: examined this patient, discuss w/resident/PA/ELEVATOR SUPERVISOR, agreed w/resident/PA/ELEVATOR SUPERVISOR, reviewed EMR data (avail), discussed with nursing, reviewed images Attending Assessment/Plan: Patient had a midline placed by the IV nurse yesterday. Given that we cannot draw blood from the midline we have asked IR to change this over a guidewire into a PICC. He is getting IV Ancef for the right thigh cellulitis. He has morbid obesity and peripheral vascular disease and has a chronic left leg wound. Was an issue with the wound VAC yesterday and the wound care nurses can come and see him today. He does have an acute transaminitis of unclear etiology. He says he has a history of hep C and was treated and the last time he was checked at [facility]' it was all clear. Will follow-up in a hepatitis panel. His MRI of his abdomen done in August showed hepatosplenomegaly and will need to follow-up in the LFTs closely.
--- NOTE | 2017-09-11 08:58 | PN- Pulmonary ---
Subjective HPI/Critical Care Issues: Patient is awaiting PICC line. Lower extremity erythema is fading. Right lower extremity ulcer is clean and continues to epithelialize with aggressive leg elevation and bed rest. Objective Current Medications: Current Medications Sig/Aminata Start time Last Medication Dose Route Stop Time Status Admin Acetaminophen 650 MG Q6P PRN 09/09 1445 AC PO Alprazolam 0.5 MG 4 TIMES/DAY 09/09 1501 AC 09/10 PO 09/16 1500 2130 Atorvastatin Calcium 40 MG 1700 09/09 1700 AC 09/10 PO 1645 Carvedilol 3.125 MG BID 09/09 2200 AC 09/10 PO 2129 Cefazolin Sodium 1,000 MG IQ8 09/09 1600 AC 09/11 IV 0011 Heparin Sodium 5,000 UNIT Q8 09/09 1431 AC 09/11 (Porcine) SC 0651 Methadone HCl 30 MG DAILY 09/10 1000 AC 09/10 PO 1058 Methadone HCl 20 MG QPM 09/09 2200 AC 09/10 PO 2130 Sodium Chloride 1,000 ML Q10H 09/09 1445 DC 09/10 IV 09/10 1044 0328 Temazepam 15 MG QPM 09/09 2200 AC 09/10 PO 2239 Vital Signs & I&O Last 24 Hrs of Vitals and I&O: Vital Signs Date Time Temp Pulse Resp B/P B/P Pulse O2 O2 Flow FiO2 Mean Ox Delivery Rate 09/11 0627 98.0 66 18 134/66 95 Room Air 09/10 2209 98.1 86 19 138/68 99 Room Air 09/10 2129 86 138/68 09/10 1450 98.0 79 18 136/70 98 Room Air 09/10 1057 98.1 80 18 124/76 Intake & Output 09/11 1600 09/11 0800 09/11 0000 Intake Total 200 480 Output Total Balance 200 480 Intake, Oral 200 480 Number 0 Bowel Movements Right lower extremity venous ulcer is epithelializing areas of erythema are resolving on antibiotics and leg elevation. Wound VAC has been removed from left leg and will be replaced tomorrow Impression/Plan Impression/Plan Impression/Plan: 67-year-old gentleman chronic venous insufficiency venous hypertension admitted with right leg cellulitis and non-resolving venous stasis ulcer. These are improved with bedrest and antibiotics. Recommendations: Continue antibiotics leg elevation wound cleansing and daily Xeroform. Evaluation of abnormal LFTs her primary care team. Obtain nutritional evaluation given reduced albumin.
--- NOTE | 2017-09-11 10:18 | Discharge Summary ---
Visit Information Visit Dates Admission Date: 09/09/17 Discharge Date: 09/13/17 Hospital Course Course Attending Physician: Yue BURRELL,Jennifer Huerta Primary Care Physician: Patient Has No Primary Care Dr Hospital Course: Mr. Rivera is 67-year-old male with PMH of hypertension, chronic pain syndrome currently on methadone, osteomyelitis of the fifth toe status post ambutation 2016, hypertension, chronic venous insufficiency was admitted for expanding erythema and warmth of the anterior lateral and posterior aspects of his right hip, right leg in setting of chronic venous stasis ulcer, non-prulent erythema, no tenderness, associated with subjective fever, shaking and chills. [facility] for SSTI requires IV Abx therapy. Patient follow up with wound center for left lower extermity chronic wound which has been stable, has wound vac. Problem list 1. Nonpurulent Cellulitis of the right hip and and leg in setting of chronic venous stasis ulcer: no signs of MRSA infection on admission, no purulence or skin breakdown, was treated with IV cefazolin with good response. PICC line was placed by IR due to difficulty obtaining peripheral line. Patient remined afabrile without leukoctosis during his hospital stay, blood culture negative so far. Wound consultation was obtained with recommendation for leg elevation and aggressive cleansing and Xeroform daily. Patient will be discharged on oral keflex 750 mg 3 times a day to finish total of 7 days of antibiotics. Wound VAC was placed on the left lower extremity wound. Patient will follow up as an outpatient with wound center in addition to home health services. Nutrition consultation was obtained for low albumin and sitting of chronic wounds, recommendation to take ansure 3 times a day daily. 2. Transaminitis with history of hepatitis C infection: Patient reported history of hepatitis C that was treated at [facility] last year with complete resolution of hepatitis C couple of months ago based on liver function test and serology test however hepatitis panel revealed active hepatitis C. Close monitor of of liver function test revealed improvement, on discharge AST 77, ALT 72, alkaline phosphatase 153. Patient instructed to follow up with primary care physician after discharge for liver function test. 3. History of hypertension: Continue home dose carvedilol, hydrochlorothiazide is on hold for elevated creatinine on admission. Hydrochlorothiazide was restarted upon discharge, recommendation to follow up BMP after discharge. 4. ALYSSA secondary to ATN 2/2 to hypotension-Pre renal azothemia: Creatinine on admission was 1.4, improved to 1.2, hydrochlorothiazide restarted upon discharge. 5.Chronic pain syndrom: contine methadone therapy Allergies: Coded Allergies: Sulfa (Sulfonamide Antibiotics) (RASH 03/01/16) sulfamethoxazole (From MAYRA) (RASH 03/01/16) trimethoprim (From MAYRA) (RASH 03/01/16) Disposition Summary Disposition Principal Diagnosis: Cellulitis Additional Diagnosis: Chronic venous stasis ulcers Discharge Disposition: home health services Discharge Instructions General Discharge Information Code Status: Full Code Patient's Diet: Regular diet Patient's Activity: As tolerated Follow-Up Instructions/Appts: -Please follow up with your primary care physician (you got a referral to ) within 1 week after discharge -Please repeat BMP and liver function test on 09/16/16 -Please follow up with Dr. Narayanan at wound center Medications at Discharge Discharge Medications: Continue taking these medications: Multivitamin (Multiple Vitamins) 1 EACH TABLET 1 Tablet ORAL DAILY Comments: NOT GIVEN IN HOSPITAL Ferrous Sulfate (Ferrous Sulfate) 325 MG (65 MG IRON) TABLET 1 Tablet ORAL THREE TIMES DAILY Comments: Last Taken: 01/17/17 Time: 0800 Methadone Hydrochloride (Methadone HCl) 10 MG TABLET 3 Tablet ORAL Every Morning Comments: Last Taken: Time: 0800 Methadone Hydrochloride (Methadone HCl) 10 MG TABLET 2 Tablet ORAL Every night Comments: Last Taken: 01/16/17 Time: 9PM Alprazolam (Xanax) 0.5 MG TABLET 1 Tablet ORAL 4 TIMES A DAY Hydrochlorothiazide (Hydrochlorothiazide) 25 MG TABLET 1 Tablet ORAL DAILY Atorvastatin Calcium (Atorvastatin Calcium) 40 MG TABLET 1 Tablet ORAL Every night Qty = 30 Carvedilol (Carvedilol) 3.125 MG TABLET 1 Tablet ORAL TWICE DAILY Temazepam (Temazepam) 15 MG CAPSULE 1 Capsule ORAL Every night Qty = 7 This prescription has been renewed Start taking the following new medications: Cephalexin (Keflex) 750 MG CAPSULE 1 Capsule ORAL THREE TIMES DAILY Qty = 12 No Refills Instructions: . Copies To: Ada BURRELL,Ada; Kelly BURRELL,Erick Davenport
--- NOTE | 2017-09-11 12:38 | INTERVENTIONAL RADIOLOGY RPT ---
CLINICAL HISTORY: This patient is a 67-year-old male with a right upper extremity midline who presents to Interventional Radiology for placement of a single lumen PICC for central venous access. PROCEDURES: 1. Real-time ultrasound-guided access into the right basilic vein after documentation of selected vessel patency, and permanent imaging storing in the patient records. 2. Placement of a PICC. PHYSICIANS: Dr. Imtiaz Carroll (attending). MEDICATIONS: Lidocaine 1%, 2 mL SQ. CONTRAST: None FLUOROSCOPY TIME: 0.7 minutes DAP: 6.0 uGym2 COMPLICATIONS: None ESTIMATED BLOOD LOSS: Scant SPECIMENS: None IMPLANT: 5 Fr Power PICC SITE MARKING: As part of the preprocedure verification policy, a site marking procedure was initiated. Due to the nature the procedure, the insertion site could not be predetermined thus invoking the policy of exemption to site laterality and marking. Insertion site marking was performed in the procedure room in conjunction with imaging confirmation. PROCEDURE NOTE: Informed consent was obtained from the patient prior to the procedure. During this process, the procedure and potential alternatives were explained along with the intended outcome and benefits. The risks of the procedure, including the possibility of an unsuccessful procedure, as well as the risk of not doing the procedure, were discussed. The patient was given the opportunity to ask questions regarding the procedure and appeared competent to make decisions. A signed consent form documenting this discussion was placed in the medical record. A time-out procedure was performed. The patient was placed supine on the fluoroscopy table. Prior to prepping the patient, a limited sonogram of the right arm was performed to choose appropriate access, and this arm was prepped and draped in the usual sterile fashion. All elements of maximal sterile barrier technique followed including use of cap, mask, sterile gown, sterile gloves, a sterile full body drape and hand hygiene. Also followed skin preparation with 2% chlorhexidine for cutaneous antisepsis, and sterile ultrasound preparation with sterile gel and probe cover when applicable. Preliminary fluoroscopic imaging demonstrated the right upper extremity midline catheter tip to be located in the soft tissues of the upper arm. Ultrasound evaluation was then performed which demonstrated the existing midline was in a branch of the basilic vein extending into the subcutaneous tissues of the upper arm. New venous access was achieved into the right basilic vein using ultrasound and fluoroscopic guidance. The 0.018 measuring wire from the PICC was advanced into the cavoatrial junction. The needle was removed and replaced with the peel away sheath. The intravascular length was measured and the catheter was trimmed to the correct length. The inner dilator was removed and the PICC was advanced over the wire into the cavoatrial junction. The peel away sheath and wire were removed. The catheter was tested successfully and secured to the skin with its tip in the superior cavoatrial junction. A spot image was taken. The existing midline catheter was removed. Sterile dressings were applied. The patient tolerated the procedure well. FINDINGS: 1. Patent right basilic vein. 2. Existing midline catheter was in a branch of the basilic vein. 3. Successful placement of a 5-Fr single lumen PICC that measures 53 cm in length. The midline catheter was then removed. IMPRESSION: Successful placement of a PICC. PLAN: 1. The patient was stable after the procedure and was transferred to the interventional recovery area. The patient will be transferred to the floor. 2. The catheter may be used immediately.
[2017-09-11 15:42] VITALS: BP 120/70
[2017-09-12 07:16] VITALS: BP 130/64
--- NOTE | 2017-09-12 08:19 | PN- Wound Care ---
Subjective Subjective: Edema is improved with bedrest and right anterior leg ulcer is approximately 90% healed. Wound VAC will be placed on left leg ulcers prior to discharge today. Patient continues to have evidence of prerenal azotemia Objective Vital Signs and I&Os Vital Signs Result Date Time Pulse Ox 95 09/12 715 B/P 130/64 09/12 715 O2 Delivery Room Air 09/12 715 Temp 97.7 09/12 715 Pulse 71 09/12 715 Resp 18 09/12 715 Intake & Output 09/12 0000 09/11 1600 09/11 0800 Intake Total 480 720 200 Output Total Balance 480 720 200 Intake, Oral 480 720 200 Number 0 0 Bowel Movements The right leg shows the right anterior venous ulcer to be 90% healed erythema has almost completely faded wound VAC will be reapplied to left lower extremity ulcer prior to discharge Impression/Plan Impression/Plan Impression/Plan: 67-year-old gent with chronic venous insufficiency venous hypertension admitted with acute cellulitis of his right leg in the setting of a chronic venous stasis ulcer. Recommend leg elevation aggressive cleansing and Xeroform daily. Complete course of antibiotics. By mouth fluids. Wound VAC to be reapplied to left lower extremity ulcer
--- NOTE | 2017-09-12 08:42 | PN- Housestaff ---
Sami BURRELL,[facility] 09/12/17 0841: Subjective Follow-up For: cellulitis Subjective: Patient was seen and examined this morning, however no complaints. Vital signs are stable, afebrile, PICC line working appropriately. Right lower extremity cellulitis improved significantly, right thigh cellulitis almost healed. BM today. Wound VAC will place on the left lower extremity, plans for discharge today or tomorrow. Review of Systems Constitutional: Reports: see HPI. Objective Last 24 Hrs of Vital Signs/I&O Vital Signs Date Time Temp Pulse Resp B/P B/P Pulse O2 O2 Flow FiO2 Mean Ox Delivery Rate 09/12 0716 97.7 71 18 130/64 95 Room Air 09/11 2126 98.2 72 18 130/58 09/11 1542 97.9 83 22 120/70 97 Intake & Output 09/12 1600 09/12 0800 09/12 0000 Intake Total 480 480 Output Total Balance 480 480 Intake, Oral 480 480 Physical Exam General Appearance: Alert, Oriented X3, Cooperative, No Acute Distress Skin: No Rashes Skin Temp/Moisture Exam: Warm/Dry HEENT: Atraumatic, PERRLA, EOMI, Mucous Membr. moist/pink Neck: Supple, No JVD Cardiovascular: Regular Rate, Normal S1, Normal S2, No Murmurs Lungs: Clear to Auscultation, Normal Air Movement Abdomen: Normal Bowel Sounds, Soft, No Tenderness Neurological: Normal Gait, Normal Speech, Strength at 5/5 X4 Ext, Normal Tone, Sensation Intact, Cranial Nerves 3-12 NL, Reflexes 2+ Extremities: No Clubbing, No Cyanosis, No Edema, Normal Pulses, Right leg and thigh erythema improved, no tenderness or warmness. no discharge. Assessment/Plan Assessment: Mr. Rivera is 67-year-old male with PMH of osteomyelitis of the fifth toe status post ambutation 2016, hypertension, chronic venous insufficiency was admitted for non- prulent SSTI requires IV Abx therapy. Problem list 1. Nonpurulent Cellulitis of the right leg extending up to the midthigh 2. History of hypertension 3. ALYSSA secondary to ATN 2/2 to hypotension-Pre renal azothemia 4. Hx of osteomyelitis of fifth toe w/ Cx + for MRSA and psuedomonas; status post resection 5.Chronic pain syndrome and on methadone therapy Plan -Continue antibiotic IV cefazolin, will switch to Keflex on discharge to finish total of 7 days antibiotic -Follow up blood cultures... Negative so far -Wand consultation was obtained, thanks for recommendation -PICC line was placced by IR for access -Wound VAC will be placed today on left leg ulcer -LFt improved, HX of Hep C treated at [place] last year -Hepatitis panel reactive for hepatitis C -Methadone 30 mg in the am and 20 mg at bedtime -Hold HCTZ 25 mg- Resumeupon discharge if creatinine improved -Continue carvedilol 3.25, crestor 40 mg po daily DVT prophylaxis with subcutaneous heparin Diet regular Full code Consultation wound care Problem List: 1. Cellulitis, leg 2. ALYSSA (acute kidney injury) Pain Ratin Pain Location: N/A Pain Goal: Pain 4 or less Pain Plan: See medication Tomorrow's Labs & Rationales: NONE Yue BURRELL,Jennifer 09/12/17 0919: Attending MD Review Statement Attending Statement Attending MD Statement: examined this patient, discuss w/resident/PA/JOURNAL BOX INSPECTOR, agreed w/resident/PA/JOURNAL BOX INSPECTOR, reviewed EMR data (avail), discussed with nursing, discussed with case mgmt, reviewed images Attending Assessment/Plan: Overall patient is feeling better. He says he is drinking plenty of fluids. Jazmín from the wound care center is scheduled to come to put on his wound VAC on his left leg today. His right lower extremity, the cellulitis appears considerably improved he does have hyperpigmentation and chronic venous stasis. We'll continue the IV Ancef today and plan for by mouth Keflex in a.m. We'll give him a total of 7 days of antibiotics. Because of the prerenal azotemia we had held the hydrochlorothiazide and he will resume that on discharge. We will trend his transaminitis. We've given her a referral to Dr. Caballero at the [place] [facility] and we are going to repeat his BEP and LFTs on 09/16. I clearly explained to him the need for close outpatient follow-up both in terms of his renal function and liver enzymes. He says that he had hepatitis C and got 3 months of an oral pill at [facility] and was told that the viremia had cleared. This clearly needs follow-up. He is asking for some sleeping pills on discharge and I explained that I can only give 7 pills of the Restoril.
[2017-09-12] MEDS ORDERED: TEMAZEPAM15 M1 PO (09:34)
[2017-09-12] MEDS ORDERED: KEFLEX750 M1 PO ×2 (09:34→09:35)
--- NOTE | 2017-09-12 09:39 | Patient Discharge Instructions ---
Discharge Instructions General Discharge Information You were seen/treated for: Cellulitis You had these procedures: PIC line placement Wound VAC placement Watch for these problems: Fever, chills, warmth, red, tender skin Special Instructions: -Please follow up with your primary care physician (you got a referral to ) within 1 week after discharge -Please repeat BMP and liver function test on 09/16/16 -Please follow up with Dr. Narayanan at [facility] Acute Coronary Syndrome Inclusion Criteria At DC or during hospital stay patient has or had the following: ACS DIAGNOSIS No Discharge Core Measures Meds if any: Prescribed or Continued at Discharge Meds if any: NOT Prescribed or Continued at Discharge Congestive Heart Failure Inclusion Criteria At DC or during hospital stay patient has or had the following: CHF DIAGNOSIS No Discharge Core Measures Meds if any: Prescribed or Continued at Discharge Meds if any: NOT Prescribed or Continued at Discharge Cerebrovascular accident Inclusion Criteria At DC or during hospital stay patient has or had the following: CVA/TIA Diagnosis No Discharge Core Measures Meds if any: Prescribed or Continued at Discharge Meds if any: NOT Prescribed or Continued at Discharge Venous thromboembolism Inclusion Criteria VTE Diagnosis No VTE Type NONE VTE Confirmed by (Test) NONE Discharge Core Measures - Per Current guidelines, there needs to be overlap - treatment for the first 5 days of Warfarin therapy. - If discharged on Warfarin prior to 5 days of - overlap therapy, the patient will need to be - assessed for post discharge needs including - *Post discharge parental anticoagulation - *Warfarin and/or parental anticoagulation education - *Follow up date to check INR post discharge At least 5 days overlap therapy as Inpatient Yes Meds if any: Prescribed or Continued at Discharge Note: Overlap Therapy is Warfarin and Anticoagulant Meds if any: NOT Prescribed or Continued at Discharge
[2017-09-12 15:06] VITALS: BP 140/72
[2017-09-12 22:27] VITALS: BP 130/60
[2017-09-13 06:00] VITALS: BP 130/68
--- NOTE | 2017-09-13 09:12 | PN- Housestaff ---
Tariq Tyson 09/13/17 0912: Subjective Follow-up For: Cellulitis of the lower extremities Complaints: no complaints Subjective: There were no acute events overnight. This morning he denies any fevers, chills , shortness of breath, nausea, vomiting, abdominal pain or worsening pain in his lower extremities. Review of Systems Constitutional: Reports: see HPI. EENTM: Reports: no symptoms. Cardiovascular: Reports: no symptoms. Respiratory: Reports: no symptoms. Gastrointestinal: Reports: no symptoms. Genitourinary: Reports: no symptoms. Musculoskeletal: Reports: see HPI. Skin: Reports: see HPI. Objective Last 24 Hrs of Vital Signs/I&O Vital Signs Date Time Temp Pulse Resp B/P B/P Pulse O2 O2 Flow FiO2 Mean Ox Delivery Rate 09/13 0828 97.8 67 20 13/68 09/13 0600 97.8 67 20 130/68 96 Room Air 09/13 0000 95 Room Air 09/12 2227 98.4 78 20 130/60 95 Room Air 09/12 2223 98.4 78 20 130/60 09/12 1506 97.8 77 18 140/72 95 Room Air Intake & Output 09/13 1600 09/13 0800 09/13 0000 Intake Total 30 480 Output Total Balance 30 480 Intake, IV 30 Intake, Oral 0 480 Number 0 Bowel Movements Physical Exam General Appearance: Alert Skin: Chronic venous changes in bilateral lower extremities Skin Temp/Moisture Exam: Warm/Dry HEENT: Mucous Membr. moist/pink Cardiovascular: Regular Rate, Normal S1, Normal S2 Lungs: Normal Air Movement, Dimnished breagth sounds in the basilar regions Abdomen: Normal Bowel Sounds, Soft, No Tenderness Neurological: Normal Speech Assessment/Plan Assessment: Mr. Rivera is 67-year-old male with PMH of osteomyelitis of the fifth toe status post ambutation 2016, hypertension, chronic venous insufficiency was admitted for non- prulent SSTI requires IV Abx therapy. Problem list 1. Nonpurulent Cellulitis of the right leg extending up to the midthigh 2. History of hypertension 3. ALYSSA secondary to ATN 2/2 to hypotension-Pre renal azothemia 4. Hx of osteomyelitis of fifth toe w/ Cx + for MRSA and psuedomonas; status post resection 5.Chronic pain syndrome and on methadone therapy Plan * Patient stable enough for discharge today. We'll transition to complete a seven-day course with Keflex. Patient will be following up at the wound care center for dressing changes * Successful removal of PICC line prior to discharge Problem List: 1. Cellulitis Pain Ratin Pain Location: Lower extremities Pain Goal: Pain 4 or less Pain Plan: Pain pathway Tomorrow's Labs & Rationales: None required. Stable for discharge DVT/Prophylaxis: pharmacological Discharge Plan Discharge Disposition: home Stable for Discharge? Yes Anticipated Discharge (Day): today If Discharged Today/In 24 Hrs: enter [facility] discharge ord, W-10/discharge paper done, DC summary done, CMR done Zeferino Baum MD 09/13/17 2123: Attending MD Review Statement Attending Statement Attending MD Statement: examined this patient, discuss w/resident/PA/ADMINISTRATIVE SPECIALIST, agreed w/resident/PA/ADMINISTRATIVE SPECIALIST, reviewed EMR data (avail), discussed with nursing, amended to note Attending Assessment/Plan: The patient was seen and discussed with house staff. Agree with the plan of care to discharge today. PICC line discontinued by house staff. Will follow-up in medical clinic.
[2017-09-13 10:00] VITALS: BP 130/82
== END 2017-09-13 12:00 | DRG 603 ==
LOC: ERH 10:20 → 2NA 10:41 → ERHI 10:41 → ENRESERV 13:07 → ENTRNSPT 14:12 → EDTRNSPTSTS 14:24 → EDTRNSPT 14:24 → 2NA 14:29 → CMPTRNSPT 14:39 → ENPENDDIS 09-13 10:28 → 2NA 09-13 12:00
PROVIDERS: Physician Assistant Medical; Student in an Organized Health Care Education/Training Program
PROC: 02HV33Z Insertion of Infusion Device into Superior Vena Cava, Percutaneous Approach (ICD-10-PCS; principal; 2017-09-11)
DX: L03.115 Cellulitis of right lower limb (principal); N17.9 Acute kidney failure, unspecified; E66.01 Morbid (severe) obesity due to excess calories; L97.819 Non-pressure chronic ulcer of other part of right lower leg with unspecified severity; Z68.42 Body mass index [BMI] 45.0-49.9, adult; I73.9 Peripheral vascular disease, unspecified; B18.2 Chronic viral hepatitis C; I87.2 Venous insufficiency (chronic) (peripheral); F41.9 Anxiety disorder, unspecified; G89.4 Chronic pain syndrome; I10 Essential (primary) hypertension; E78.5 Hyperlipidemia, unspecified
CPT/HCPCS: 2NAP; 77001; 82436; 87040; C1769; G0463; J0690; J1642; J1644; J3370; J7040